=== PATIENT | female | born 1930 | race Caucasian/White ===

== ENCOUNTER 2016-12-20 03:32 | Inpatient (IN) | payer OTHER, MEDICARE ==
[2016-12-20] VITALS (16 sets, daily range): BP systolic 105–154; BP diastolic 51–65; PULSE 91–117; RESP 16–30; TEMP 97.7–100.5; O2SAT 93–99
[~2016-12-20] VITALS: Ht 160 cm; Wt 57.5 kg
[~2016-12-20 03:32] MED LIST: AMLO5 PO; ASPI81TA82 PO; CALC-137 PO; DOCU1CAP39 PO; LEVO50TA48 PO; LISI-360 PO; MAPA325T6 PO; MEMA28CA PO; REME15TA PO; TEMA15 PO; TRAM50 PO; VITA-13 PO
[2016-12-20] MEDS ORDERED: ONDANSETRON HCL 4 MG/2 ML VIAL IV PUSH ONE (04:00)
[2016-12-20] MEDS ORDERED: SODIUM CHLORIDE 0.9% FLUSH 10 ML FLUSH IVF PRN (04:00)
[2016-12-20] MEDS ORDERED: ONDANSETRON HCL 4 MG/2 ML VIAL ONE (04:01)
--- NOTE | 2016-12-20 04:04 | PD ---
HPI . Cough and shortness of breath Chief Complaint: Respiratory Symptoms Time Seen by Provider: 03:48 Travel History International Travel<30 days: No Contact w/Intl Traveler<30days: No Traveled to known affect area: No History of Present Illness HPI This patient presents to us via [facility] with the chief complaint of cough and shortness of breath. She was reportedly brought here from her son's home. Patient reports that she resides in a senior living. The patient states that she does not know anything about her past medical history. She states that the nurses at the senior living just bring her medications to take from time to time and she takes them as instructed. We presume that she had the onset of her symptoms tonight. The cough is reportedly nonproductive. She does not believe that she has been running any fever. She does not believe that she has any history of lung disease or heart disease. The patient was treated en route to the hospital with 3 DuoNeb. PFSH Past Medical History Arthritis: Yes Asthma: No Blood Disorders: No Anxiety: No Depression: No Heart Rhythm Problems: No Cancer: No Cardiovascular Problems: Yes High Cholesterol: No Chemotherapy: No Chest Pain: No Congestive Heart Failure: No COPD: No Cerebrovascular Accident: No Diabetes: No Diminished Hearing: No Endocrine: Yes GERD: No Glaucoma: No Genitourinary: No Headaches: No Hepatitis: No Hiatal Hernia: No Hypertension: Yes Immune Disorder: No Implanted Vascular Access Dvce: Yes Kidney Stones: No Musculoskeletal: Yes (bilat hip replacement) Neurologic: No Psychiatric: Yes (psychiatric) Reproductive: No Respiratory: No Migraines: No Myocardial Infarction: No Radiation Therapy: No Renal Failure: No Seizures: No Sleep Apnea: No Thyroid Disease: Yes (hypothyroidism) Ulcer: No Menopausal: Yes Past Surgical History Abdominal Surgery: No Appendectomy: No Body Medical Devices: METALS HIP Cardiac Surgery: No Cholecystectomy: No Ear Surgery: No Endocrine Surgery: No Eye Surgery: No Genitourinary Surgery: No Gynecologic Surgery: No Oral Surgery: Yes Thoracic Surgery: No Tonsillectomy: Yes Other Surgery: Yes Social History Alcohol Use: No Tobacco Use: No Substance Use: No Allergies-Medications (Allergen,Severity, Reaction): Coded Allergies: Codeine (Verified Allergy, Severe, NAUSEA/VOMITING, 03/07/15) Percocet (Verified Allergy, Severe, NAUSEA/VOMITING, 03/07/15) Morphine (Verified Allergy, Mild, 03/07/15) Reported Meds & Prescriptions Reported Meds & Active Scripts Active Review of Systems ROS Limitations: Poor Historian Except as stated in HPI: all other systems reviewed are Neg General / Constitutional: Positive: Chills, No: Fever Cardiovascular: No: Chest Pain or Discomfort Respiratory: Positive: Cough, Shortness of Breath Physical Exam Narrative GENERAL: Patient is awake and alert but a very poor historian. SKIN: Warm and dry. HEAD: Atraumatic. Normocephalic. EYES: Pupils equal and round. Extraocular movements are intact. ENT: No nasal bleeding or discharge. Mucous membranes pink and moist. NECK: Trachea midline. Neck is supple. CARDIOVASCULAR: Regular rate and rhythm. Heart sounds were normal. RESPIRATORY: Persistent dry cough. Breath sounds are diminished. By basilar rales. GASTROINTESTINAL: Abdomen soft, non-tender, nondistended. MUSCULOSKELETAL: No obvious deformities. No edema. NEUROLOGICAL: Awake and alert. No obvious cranial nerve deficits. Motor grossly within normal limits. Normal speech. PSYCHIATRIC: Unable to assess. Data Data Last Documented VS Vital Signs Date Time Temp Pulse Resp B/P Pulse Ox O2 Delivery O2 Flow Rate FiO2 12/20/16 05:02 114 30 116/59 94 Nasal Cannula 2 12/20/16 03:35 97.7 Orders Complete Blood Count With Diff (12/20/16 03:50) Comprehensive Metabolic Panel (12/20/16 03:50) B-Type Natriuretic Peptide (12/20/16 03:50) Act Partial Throm Time (Ptt) (12/20/16 03:50) Prothrombin Time / Inr (Pt) (12/20/16 03:50) Ckmb (Isoenzyme) Profile (12/20/16 03:50) Troponin I (12/20/16 03:50) Iv Access Insert/Monitor (12/20/16 03:50) Ecg Monitoring (12/20/16 03:50) Oximetry (12/20/16 03:50) Oxygen Administration (12/20/16 03:50) Chest, Single Ap (12/20/16 03:50) Sodium Chloride 0.9% Flush (Ns Flush) (12/20/16 04:00) Albuterol-Ipratropium Neb (Duoneb Neb) (12/20/16 04:00) Ondansetron Inj (Zofran Inj) (12/20/16 04:00) Ondansetron Inj (Zofran Inj) (12/20/16 04:01) Ct Thorax/ Chest Wo Iv Contras (12/20/16 04:59) Blood Culture (12/20/16 05:54) Ceftriaxone Inj (Rocephin Inj) (12/20/16 06:00) Azithromycin Inj (Zithromax Inj) (12/20/16 06:00) Admit Order (Ed Use Only) (12/20/16 06:07) Labs Laboratory Tests Test 12/20/16 12/20/16 03:53 04:14 White Blood Count 14.7 TH/MM3 Red Blood Count 3.85 MIL/MM3 Hemoglobin 11.5 GM/DL Hematocrit 35.2 % Mean Corpuscular Volume 91.5 FL Mean Corpuscular Hemoglobin 29.9 PG Mean Corpuscular Hemoglobin 32.7 % Concent Red Cell Distribution Width 13.1 % Platelet Count 190 TH/MM3 Mean Platelet Volume 7.4 FL Neutrophils (%) (Auto) 59.5 % Lymphocytes (%) (Auto) 32.9 % Monocytes (%) (Auto) 5.9 % Eosinophils (%) (Auto) 1.1 % Basophils (%) (Auto) 0.6 % Neutrophils # (Auto) 8.8 TH/MM3 Lymphocytes # (Auto) 4.9 TH/MM3 Monocytes # (Auto) 0.9 TH/MM3 Eosinophils # (Auto) 0.2 TH/MM3 Basophils # (Auto) 0.1 TH/MM3 CBC Comment DIFF FINAL Differential Comment Sodium Level 140 MEQ/L Potassium Level 3.9 MEQ/L Chloride Level 106 MEQ/L Carbon Dioxide Level 21.7 MEQ/L Anion Gap 12 MEQ/L Blood Urea Nitrogen 32 MG/DL Creatinine 1.72 MG/DL Estimat Glomerular Filtration 28 ML/MIN Rate Random Glucose 167 MG/DL Calcium Level 9.9 MG/DL Total Bilirubin 0.3 MG/DL Aspartate Amino Transf 28 U/L (AST/SGOT) Alanine Aminotransferase 23 U/L (ALT/SGPT) Alkaline Phosphatase 91 U/L Total Creatine Kinase 100 U/L Troponin I LESS THAN 0.02 NG/ML B-Type Natriuretic Peptide 14 PG/ML Total Protein 7.8 GM/DL Albumin 3.7 GM/DL Prothrombin Time 10.3 SEC Prothromb Time International 0.9 RATIO Ratio Activated Partial 21.4 SEC Thromboplast Time MDM Medical Decision Making Medical Screen Exam Complete: Yes Emergency Medical Condition: Yes Medical Record Reviewed: Yes (past medical history is significant for hypertension, hypothyroidism and dementia.) Interpretation(s) EKG shows a sinus tachycardia with a ventricular rate of 111. She does have ST segment depression in the lateral leads. This is new from her most recent EKG from February 2015. Differential Diagnosis Differential diagnosis of dyspnea includes but is not limited to congestive heart failure, pneumonia, wheezing, pneumothorax, pulmonary embolism Narrative Course This patient presents with acute cough and dyspnea. I suspect CHF. She has diminished breath sounds so she will be given 3 more nebulizer treatments. Last Impressions Chest X-Ray 12/20/16 0350 Signed Impressions: Service Date/Time: , December 20, 2016 03:47 - CONCLUSION: Stable chest x-ray. No acute cardiopulmonary abnormality is identified. Rosales Dumont MD The chest x-ray was independently viewed by me. The patient's son is now here. He states that the patient was actually transported to us from the assisted-living facility where she lives with her . The son states that they went out to dinner tonight and that he was with her until about 9 PM. He states that she is having no cough or difficulty breathing at that time. He reports no previous history of heart or lung problems. The patient has had 3 more nebulizer treatments and continues to have a very persistent dry cough. CT chest: 1. Perihilar groundglass opacity with nodularity. Although nonspecific the appearance favors an infectious or inflammatory process. 2. Coronary artery calcification. Pneumonia fits with the clinical picture. Blood cultures have been ordered as well as Rocephin and Zithromax. Physician Communication Physician Communication Dr. Castro will admit Diagnosis Primary Impression: Pneumonia Qualified Code: J18.9 - Pneumonia of both lungs due to infectious organism, unspecified part of lung Admitting Information Admitting Physician Requests: Admit Condition: Stable Enriqueta Posada MD Dec 20, 2016 04:04
[2016-12-20] MEDS: RESP: ALBUTEROL 2.5 MG/IPRATROPIUM 0.5 MG NEB (SCH) INH ×5 (04:07→23:22)
[2016-12-20 04:13] LABS: AUTOMATED NEUTROPHIL # 8.8 TH/MM3 (1.8-7.7); BASOPHIL # 0.1 TH/MM3 (0-0.2); BASOPHIL % 0.6 % (0.0-2.0); EOSINOPHIL # 0.2 TH/MM3 (0-0.4); EOSINOPHIL % 1.1 % (0.0-4.0); HEMATOCRIT 35.2 % (35.0-46.0); HEMO FLAGS DIFF FINAL; LYMPH % 32.9 % (9.0-44.0); LYMPHOCYTE # 4.9 TH/MM3 (1.0-4.8); MEAN CELL VOLUME 91.5 FL (80.0-100.0); MEAN CORPUSCULAR HEMOGLOBIN 29.9 PG (27.0-34.0); MEAN CORPUSCULAR HGB CONC 32.7 % (32.0-36.0); MONO % 5.9 % (0.0-8.0); NEUT % 59.5 % (16.0-70.0); PLATELET COUNT 190 TH/MM3 (150-450); RED BLOOD COUNT 3.85 MIL/MM3 (4.00-5.30); RED CELL DISTRIBUTION WIDTH 13.1 % (11.6-17.2); WHITE BLOOD COUNT 14.7 TH/MM3 (4.0-11.0)
--- NOTE | 2016-12-20 04:15 | RADRPT ---
EXAM DATE/TIME: 12/20/2016 03:47 [facility] COMPARISON: CHEST SINGLE AP, December 24, 2014, 13:30. INDICATIONS : Cough and shortness of breath. MEDICAL HISTORY : Hypertension. SURGICAL HISTORY : None. ENCOUNTER: Initial ACUITY: 3 days PAIN SCORE: 0/10 LOCATION: Bilateral chest FINDINGS: Portable AP view of the chest demonstrates a normal-sized cardiac silhouette with calcification of th e aorta. No effusion, consolidation, or pneumothorax is visualized. The bones and soft tissues demons trate no acute abnormality. There is stable density overlying one of the right upper ribs. CONCLUSION: Stable chest x-ray. No acute cardiopulmonary abnormality is identified. Rosales Dumont MD on December 20, 2016 at 4:13 Board Certified Radiologist. This report was verified electronically.
[2016-12-20 04:43] LABS: APTT (PATIENT) 21.4 SEC (24.3-30.1); INTERNATIONAL NORMALIZED RATIO 0.9 RATIO; PROTHROMBIN TIME - PATIENT 10.3 SEC (9.8-11.6)
[2016-12-20 04:53] LABS: ALKALINE PHOSPHATASE 91 U/L (45-117); ALT (GPT) 23 U/L (10-53); ANION GAP 12 MEQ/L (5-15); AST (GOT) 28 U/L (15-37); BICARBONATE 21.7 MEQ/L (21.0-32.0); BLOOD UREA NITROGEN 32 MG/DL (7-18); CHLORIDE 106 MEQ/L (98-107); CREATINE KINASE 100 U/L (26-192); GLOMERULAR FILTRATION RATE 28 ML/MIN (>89); POTASSIUM 3.9 MEQ/L (3.5-5.1); SODIUM (NA) 140 MEQ/L (136-145); TOTAL BILIRUBIN ADULT 0.3 MG/DL (0.2-1.0)
--- NOTE | 2016-12-20 05:46 | RADRPT ---
EXAM DATE/TIME: 12/20/2016 05:16 [facility] COMPARISON: No previous studies available for comparison. INDICATIONS : Shortness of breath and cough. RADIATION DOSE: 5.84 CTDIvol (mGy) MEDICAL HISTORY : Cardiovascular disease. Hypertension. SURGICAL HISTORY : None. ENCOUNTER: Initial ACUITY: 1 day PAIN SCALE: 0/10 LOCATION: Bilateral chest TECHNIQUE: Volumetric scanning of the chest was performed. Using automated exposure control and adjustment of t he mA and/or kV according to patient size, radiation dose was kept as low as reasonably achievable to obtain optimal diagnostic quality images. DICOM format image data is available electronically for r eview and comparison. Follow-up recommendations for incidentally detected pulmonary nodules are based at a minimum on nodul e size and patient risk factors according to Fleischner Society Guidelines. FINDINGS: LUNGS: There is cylindrical bronchiectasis in the right upper lobe posterior segment. In the perihilar lungs bilaterally there is a groundglass attenuation with nodularity. No pneumothorax. PLEURAE: There is no pleural thickening or pleural effusion. MEDIASTINUM: The heart and great vessels demonstrate no acute abnormality. There is coronary artery calcification. There is no mediastinal or hilar lymphadenopathy. AXILLAE: Within normal limits. No lymphadenopathy. MUSCULOSKELETAL: There are degenerative changes of the thoracic spine with an old healed left rib fracture. MISCELLANEOUS: The visualized upper abdominal organs demonstrate no acute abnormality. CONCLUSION: 1. Perihilar groundglass opacity with nodularity. Although nonspecific the appearance favors an infec tious or inflammatory process. 2. Coronary artery calcification. Rosales Dumont MD on December 20, 2016 at 5:41 Board Certified Radiologist. This report was verified electronically.
[2016-12-20] MEDS ORDERED: cefTRIAXone INJ 1,000 MG in SODIUM CHLORIDE 0.9% INJ 100 ML IV ONE (06:00)
[2016-12-20] MEDS ORDERED: AZITHROMYCIN INJ 500 MG in SODIUM CHLOR 0.9% 250 ML INJ 250 ML IV ONE (06:00)
[2016-12-20] MEDS ORDERED: SODIUM CHLORIDE 0.9% FLUSH 10 ML FLUSH IV FLUSH PRN ×2 (06:15→09:45)
[2016-12-20] MEDS ORDERED: NALOXONE HCL 0.4 MG/ML AMP IV PRN ×2 (06:15→09:45)
[2016-12-20] MEDS ORDERED: RESP: ALBUTEROL 2.5 MG/IPRATROPIUM 0.5 MG NEB (SCH) NEB ONE (08:15)
[2016-12-20] MEDS: SODIUM CHLORIDE 0.9% FLUSH 10 ML FLUSH IV FLUSH SCH ×3 (09:00→21:00)
--- NOTE | 2016-12-20 09:31 | HHI.HP ---
cc: Kathleen Pozo MD [facility] Service [facility] Primary Care Physician Kathleen Pozo MD Admission Diagnosis pneumonia Diagnoses: Chief Complaint: Shortness of breath Travel History International Travel<30 Days: No Contact w/Intl Traveler <30 Da: No Traveled to Known Affected Are: No History of Present Illness A 86-year-old white female with a history of dementia hypothyroidism was sent via [facility] from a local assisted living facility or movement in the [facility] due to complaints of increased shortness of breath and past 3 days worsened with physical exertion of walking with her walker. She is confused and importance historian. She thinks at this moment she is still back in the assisted living facility. She denies having associated chills or fever. She reports a nonproductive cough with her as shortness of breath. She denies any associated chest pain, nausea, vomiting, orthopnea, nor any lower extremity swelling with the symptoms. She denies any past medical history and only tells me that she's had her hip fixed in the past due to a fall. She cannot tell me what type of medication she takes. She tells me the people who take care of her at the assisted living just gives me these medications. She denied any allergies although from the assisted living facility forms is documented that she is allergic to codeine morphine and Percocet. At this time or in the process of contacting the assisted living facility to obtain a full completed medication list. She states that she does not use any oxygen at home. While she is in the emergency room, she desaturates in the 80s and placed on 3 L Review of Systems ROS Limitations: Poor Historian Constitutional: COMPLAINS OF: Fatigue Eyes: DENIES: Eye pain Ears, nose, mouth, throat: DENIES: Nasal discharge, Throat pain Respiratory: COMPLAINS OF: Cough, Shortness of breath, DENIES: Wheezing Cardiovascular: DENIES: Chest pain Gastrointestinal: DENIES: Abdominal pain, Nausea, Vomiting Musculoskeletal: DENIES: Muscle aches Neurologic: COMPLAINS OF: Poor Balance (walks with a walker.) Psychiatric: COMPLAINS OF: Anxiety Limited review of systems due to patient's confusion Past Family Social History Past Medical History Patient denies any past history are per information from this is living facility patient has a history of hypothyroidism and dementia Past Surgical History History left hip ORIF Number laminectomy Tonsillectomy Questionable bilateral total hip arthroplasty Reported Medications Unable to obtain this time currently waiting for assisted living facility to send the information of the current medication list Current faxed information from assisted-living facility Norvasc 5 mg by mouth daily Aspirin 81 mg by mouth daily Calcium carbonate 600 mg by mouth twice a day Multivitamin one by mouth daily Toca Sais 100 mg 2 tablets daily at bedtime Aricept 5 mg by mouth daily at bedtime Ferrous sulfate 325 mg once daily Laboratory oxine 50 MCG's by mouth daily Lisinopril 10 mg by mouth daily Remeron 30 mg by mouth daily at bedtime Namenda XL 28 mg by mouth daily Restoril 15 mg by mouth daily at bedtime vitamin D 3000 unit daily Allergies: Coded Allergies: Codeine (Verified Allergy, Severe, NAUSEA/VOMITING, 12/20/16) Percocet (Verified Allergy, Severe, NAUSEA/VOMITING, 12/20/16) Morphine (Verified Allergy, Mild, 12/20/16) Family History She denies Social History She is a local resident at [facility] in [facility] Does not smoke, does not drink alcohol Physical Exam Vital Signs Vital Signs Date Time Temp Pulse Resp B/P Pulse Ox O2 Delivery O2 Flow Rate FiO2 12/20/16 08:39 95 Nasal Cannula 2.00 12/20/16 07:13 95 16 105/51 96 Nasal Cannula 2 12/20/16 06:11 98.5 102 28 119/57 96 Nasal Cannula 2 12/20/16 05:02 114 30 116/59 94 Nasal Cannula 2 12/20/16 04:48 116 28 126/58 94 Nasal Cannula 2 12/20/16 04:29 30 95 Nasal Cannula 2 12/20/16 03:54 93 Nasal Cannula 2 12/20/16 03:50 108 30 154/65 93 Nasal Cannula 2 12/20/16 03:35 97.7 117 24 129/62 94 Physical Exam GENERAL: This is a well-nourished, well-developed patient, in mild respiratory distress with nonproductive cough SKIN: No rashes, ecchymoses or lesions. Cool and dry. HEAD: Atraumatic. Normocephalic. No temporal or scalp tenderness. EYES: Pupils equal round and reactive. Extraocular motions intact. No scleral icterus. No injection or drainage. ENT: Nose without bleeding, purulent drainage or septal hematoma. Throat without erythema, tonsillar hypertrophy or exudate. Uvula midline. Airway patent. NECK: Trachea midline. No JVD or lymphadenopathy. Supple, nontender, no meningeal signs. CARDIOVASCULAR: Tachycardic irregular rhythm RESPIRATORY: Bilateral rhonchi bases with no active retractions, slightly diminished breath sounds GASTROINTESTINAL: Abdomen soft, non-tender, nondistended. No hepato-splenomegaly , or palpable masses. No guarding. Normoactive bowel sounds MUSCULOSKELETAL: Extremities without clubbing, cyanosis, or edema. No joint tenderness, effusion, or edema noted. No calf tenderness. Negative Homans sign bilaterally. NEUROLOGICAL: Awake and alert to person only but not to place time nor situation. She [facility] She does not know the year. Cranial nerves II through XII intact. Motor and sensory grossly overall within normal limits. Five out of 5 muscle strength in all muscle groups. Normal speech. Laboratory Laboratory Tests Test 12/20/16 12/20/16 03:53 04:14 White Blood Count 14.7 Red Blood Count 3.85 Hemoglobin 11.5 Hematocrit 35.2 Mean Corpuscular Volume 91.5 Mean Corpuscular Hemoglobin 29.9 Mean Corpuscular Hemoglobin 32.7 Concent Red Cell Distribution Width 13.1 Platelet Count 190 Mean Platelet Volume 7.4 Neutrophils (%) (Auto) 59.5 Lymphocytes (%) (Auto) 32.9 Monocytes (%) (Auto) 5.9 Eosinophils (%) (Auto) 1.1 Basophils (%) (Auto) 0.6 Neutrophils # (Auto) 8.8 Lymphocytes # (Auto) 4.9 Monocytes # (Auto) 0.9 Eosinophils # (Auto) 0.2 Basophils # (Auto) 0.1 CBC Comment DIFF FINAL Differential Comment Sodium Level 140 Potassium Level 3.9 Chloride Level 106 Carbon Dioxide Level 21.7 Anion Gap 12 Blood Urea Nitrogen 32 Creatinine 1.72 Estimat Glomerular Filtration 28 Rate Random Glucose 167 Calcium Level 9.9 Total Bilirubin 0.3 Aspartate Amino Transf 28 (AST/SGOT) Alanine Aminotransferase 23 (ALT/SGPT) Alkaline Phosphatase 91 Total Creatine Kinase 100 Troponin I LESS THAN 0.02 B-Type Natriuretic Peptide 14 Total Protein 7.8 Albumin 3.7 Prothrombin Time 10.3 Prothromb Time International 0.9 Ratio Activated Partial 21.4 Thromboplast Time Date/Time Procedure Status Source Growth 12/20/16 06:05 Aerobic Blood Culture Received Blood Peripheral Pending 12/20/16 06:05 Anaerobic Blood Culture Received Blood Peripheral Pending Result Diagram: 12/20/1635212/20/16352 Imaging EKG shows sinus tachycardia with heart rate [address] 12/20/16 0459 Signed Impressions: Service Date/Time: , December 20, 2016 05:16 - CONCLUSION: 1. Perihilar groundglass opacity with nodularity. Although nonspecific the appearance favors an infectious or inflammatory process. 2. Coronary artery calcification. Rosales Dumont MD Chest X-Ray 12/20/16 035 Signed Impressions: Service Date/Time: , December 20, 2016 03:47 - CONCLUSION: Stable chest x-ray. No acute cardiopulmonary abnormality is identified. Rosales Dumont MD Septic Shock Reassessment Heart: Other (tachycardia regular rhythm) Lungs: Course (with rhonchi) Skin: Warm, [facility] Peripheral Pulses: Bounding Right Radial Bounding Left Radial Bounding Right Popliteal Bounding Left Popliteal Bounding Right Dorsalis Pedis Bounding Left Dorsalis Pedis Bounding Right Posterior Tibial Bounding Left Posterior Tibial Capillary Refill: Brisk, <2 seconds Assessment and Plan Problem List: (1) Acute respiratory failure ICD Code: J96.00 Status: Acute (2) Community acquired pneumonia ICD Code: J18.9 Status: Acute (3) Alzheimer's dementia ICD Code: F02.80 Status: Chronic Assessment and Plan 86-year-old white female presents with acute respiratory failure with associated hypoxia likely from underlying community acquired pneumonia. At this time will obtain a stat lactic acid and follow with blood cultures to rule out sepsis. Patient presented with tachycardia, leukocytosis and acute respiratory symptoms along with changes in chest x-ray and clinical findings. IV Rocephin and Zithromax has been given. Continue with oxygen support. Continue with bronchodilator DuoNeb and supportive care. Continue physical therapy consult History hypothyroidismwill restart Synthroid when home medication list obtained. History of chronic dementiapatient's baseline is likely confusion Hypertension, chronicthe lisinopril due to septic shock and acute kidney injury Acute kidney injury superimposed on chronic kidney disease stage IIImay be due to sepsis, it hydration monitor closely. DVT prophylaxisLovenox Additional information, lactic acid return back over 6. At this time this meets CMS definition for septic shockshe is currently hemodynamically stable and IV fluid bolus will be given a continue monitor closely with a repeat lactic acid, supportive care. Physician Certification 2 Midnight Certification Type: Admission for Inpatient Services Order for Inpatient Services The services are ordered in accordance with Medicare regulations or non- Medicare payer requirements, as applicable. In the case of services not specified as inpatient-only, they are appropriately provided as inpatient services in accordance with the 2-midnight benchmark. Estimated LOS (days): 4 days is the estimated time the patient will need to remain in the hospital, assuming treatment plan goals are met and no additional complications. Post-Hospital Plan: [facility] Astrid Vera MD Dec 20, 2016 09:31
[2016-12-20] MEDS ORDERED: CHOL100025 CHEW (09:41)
[2016-12-20] MEDS ORDERED: MEMA28CA PO (09:41)
[2016-12-20] MEDS ORDERED: ASPI81CH CHEW (09:41)
[2016-12-20] MEDS ORDERED: CALC500C16 CHEW (09:41)
[2016-12-20] MEDS ORDERED: LISI10TA3 PO (09:41)
[2016-12-20] MEDS ORDERED: LEVO50TA4 PO (09:41)
[2016-12-20] MEDS ORDERED: DAILTAB39 (09:41)
[2016-12-20] MEDS ORDERED: DOCU100C PO (09:41)
[2016-12-20] MEDS ORDERED: ARIC5TAB2 PO (09:41)
[2016-12-20] MEDS ORDERED: AMLO5TAB2 PO (09:41)
[2016-12-20] MEDS ORDERED: MIRT30TA PO (09:41)
[2016-12-20] MEDS ORDERED: TEMA15CA PO (09:41)
[2016-12-20] MEDS ORDERED: FERR325T8 PO (09:41)
[2016-12-20] MEDS ORDERED: SODIUM CHLOR 0.9% 1000 ML INJ 800 ML IV ONE (09:43)
[2016-12-20] MEDS ORDERED: SODIUM CHLOR 0.9% 1000 ML INJ 1,000 ML IV ONE (09:43)
[2016-12-20] MEDS ORDERED: SENNOSIDES 8.6 MG TAB PO PRN (09:45)
[2016-12-20] MEDS ORDERED: BISACODYL 10 MG SUPP RECTAL PRN (09:45)
[2016-12-20] MEDS ORDERED: LACTULOSE SYRUP 20 GM/30 ML CUP PO PRN (09:45)
[2016-12-20] MEDS ORDERED: ACETAMINOPHEN 325 MG TAB PO PRN (09:45)
[2016-12-20] MEDS ORDERED: ONDANSETRON HCL 4 MG/2 ML VIAL IVP PRN (09:45)
[2016-12-20] MEDS ORDERED: MAGNESIUM HYDROXIDE SUSP 30 ML CUP PO PRN (09:45)
[2016-12-20] MEDS ORDERED: TOBRAMYCIN INJ 400 MG in SODIUM CHLORIDE 0.9% INJ 100 ML IV STA (09:49)
[2016-12-20] MEDS: methylPREDNISolone SOD SUCC 40 MG/1 ML VIAL IV SCH ×2 (10:00→21:32)
[2016-12-20] MEDS ORDERED: Vancomycin Consult Pharmacy 1 EA OTHER SCH (10:00)
[2016-12-20] MEDS: ENOXAPARIN SODIUM 40 MG/0.4 ML SYRINGE SQ SCH (10:01)
[2016-12-20 11:14] LABS: LACTIC ACID GHOST NOT REPORTABLE
[2016-12-20] MEDS ORDERED: VANCOMYCIN INJ 1,000 MG in SODIUM CHLOR 0.9% 250 ML INJ 250 ML IV ONE (11:15)
[2016-12-20] MEDS: CEFEPIME INJ 1,000 MG in SODIUM CHLORIDE 0.9% INJ 100 ML IV SCH (12:15)
--- NOTE | 2016-12-20 12:45 | EKG ---
Date Performed: 12/20/2016 Time Performed: 03:44:51 PTAGE: 86 years EKG: SINUS TACHYCARDIA INDETERMINATE AXIS POSSIBLE RIGHT VENTRICULAR CONDUCTION DELAY MODERATE S T DEPRESSION ABNORMAL ECG NO PREVIOUS TRACING DOCTOR: Noé Jackson Interpretating Date/Time 12/20/2016 12:42:42
--- NOTE | 2016-12-20 14:43 | RADRPT ---
EXAM DATE/TIME: 12/20/2016 13:52 [facility] COMPARISON: CHEST SINGLE AP, December 20, 2016, 3:47. INDICATIONS : Cough, congestion, chest pain MEDICAL HISTORY : Hypertension. SURGICAL HISTORY : None. ENCOUNTER: Initial ACUITY: 2 days PAIN SCORE: 2/10 LOCATION: Bilateral chest FINDINGS: Patchy bilateral lower lobe airspace disease. Mild diffuse interstitial prominence. Cardiomediastinal contours are stable. Central pulmonary vascularity is slightly indistinct. Remainder of exam is unch anged. CONCLUSION: 1. Interstitial prominence and indistinct central pulmonary vascularity consistent with positive flui d balance. 2. Patchy bilateral lower lobe airspace disease likely reflects atelectasis given the rapid interval development although aspiration cannot be excluded in the appropriate clinical setting. Ramin Mccabe MD on December 20, 2016 at 14:33 Board Certified Radiologist. This report was verified electronically.
[2016-12-20 17:11] LABS: LACTIC ACID GHOST NOT REPORTABLE
[2016-12-20] MEDS ORDERED: LORazepam 2 MG/ML VIAL IV PUSH ONE (19:00)
[2016-12-20 19:07] LABS: BACTERIA, URINE FEW /hpf; BLOOD, URINE SMALL (NEG); COMMENT (UR) CATH-CULTURE IND; CULTURE IF INDICATED CATH CULTURE IND; GLUCOSE,URINE NEG (NEG); HYALINE CAST, URINE 2 /lpf (RARE); KETONE, URINE NEG (NEG); MUCUS URINE FEW /lpf (OCC); NITRITE,URINE POS (NEG); PH, URINE 5.5 (5.0-8.5); URINE COLOR LIGHT-YELLOW (YELLW/STRAW)
[2016-12-20] MEDS: DOCUSATE SODIUM 50 MG/SENNA 8.6 MG TAB PO SCH (21:00)
[2016-12-20] MEDS: DONEPEZIL HCL 5 MG TAB PO SCH (21:31)
[2016-12-20] MEDS: MEMANTINE HCL 10 MG TAB PO SCH (21:31)
[2016-12-20] MEDS: DOCUSATE SODIUM 100 MG CAP PO SCH (21:31)
[2016-12-20] MEDS: guaiFENesin/DEXTROMETHORPHAN 200 MG/20 MG/10 ML CUP PO PRN (23:00)
[2016-12-21] VITALS (14 sets, daily range): BP systolic 119–157; BP diastolic 55–68; PULSE 74–95; RESP 16–24; TEMP 97.9–99.5; O2SAT 95–100
[2016-12-21] MEDS: RESP: ALBUTEROL 2.5 MG/IPRATROPIUM 0.5 MG NEB (SCH) INH ×6 (02:58→23:51)
[2016-12-21] MEDS: guaiFENesin/DEXTROMETHORPHAN 200 MG/20 MG/10 ML CUP PO PRN ×2 (04:10→09:24)
[2016-12-21] MEDS: AZITHROMYCIN INJ 500 MG in SODIUM CHLOR 0.9% 250 ML INJ 250 ML IV SCH (05:21)
[2016-12-21 05:33] LABS: AUTOMATED NEUTROPHIL # 12.3 TH/MM3 (1.8-7.7); BASOPHIL % 0.3 % (0.0-2.0); HEMATOCRIT 29.2 % (35.0-46.0); LYMPH % 8.9 % (9.0-44.0); LYMPHOCYTE # 1.3 TH/MM3 (1.0-4.8); MEAN CELL VOLUME 91.7 FL (80.0-100.0); MEAN CORPUSCULAR HEMOGLOBIN 29.9 PG (27.0-34.0); MEAN CORPUSCULAR HGB CONC 32.7 % (32.0-36.0); MONO % 6.6 % (0.0-8.0); NEUT % 84.2 % (16.0-70.0); PLATELET COUNT 149 TH/MM3 (150-450); RED BLOOD COUNT 3.18 MIL/MM3 (4.00-5.30); RED CELL DISTRIBUTION WIDTH 13.1 % (11.6-17.2); WHITE BLOOD COUNT 14.6 TH/MM3 (4.0-11.0)
[2016-12-21 05:42] LABS: HEMO FLAGS AUTO DIFF
[2016-12-21] MEDS ORDERED: cefTRIAXone INJ 1,000 MG in SODIUM CHLORIDE 0.9% INJ 100 ML IV SCH (06:00)
[2016-12-21 06:41] LABS: BICARBONATE 21.5 MEQ/L (21.0-32.0); POTASSIUM 4.4 MEQ/L (3.5-5.1)
[2016-12-21 07:05] LABS: BANDS 36 % (0-6); NEUTROPHIL # MANUAL DIFF 12.8 TH/MM3 (1.8-7.7); PLATELET ESTIMATE SMEAR NORMAL (NORMAL); PLATELET MORPHOLOGY NORMAL (NORMAL); POLYS (SEG NEUTROPHILS) 52 % (16-70); SCAN/DIFF FINAL DIFF MANUAL; WBC DIFF SAMPLE 100
[2016-12-21] MEDS: LEVOTHYROXINE SODIUM 50 MCG TAB PO SCH (07:15)
[2016-12-21] MEDS: DOCUSATE SODIUM 50 MG/SENNA 8.6 MG TAB PO SCH ×2 (09:00→20:02)
[2016-12-21] MEDS: FERROUS SULFATE 325 MG (65 MG ELEMENTAL IRON) TAB PO SCH (09:24)
[2016-12-21] MEDS: methylPREDNISolone SOD SUCC 40 MG/1 ML VIAL IV SCH ×2 (09:24→21:19)
[2016-12-21] MEDS: MEMANTINE HCL 10 MG TAB PO SCH ×2 (09:24→20:01)
[2016-12-21] MEDS: SODIUM CHLORIDE 0.9% FLUSH 10 ML FLUSH IV FLUSH SCH ×4 (09:24→20:02)
[2016-12-21] MEDS: ASPIRIN 81 MG CHEW TAB CHEW SCH (09:24)
[2016-12-21] MEDS: ENOXAPARIN SODIUM 40 MG/0.4 ML SYRINGE SQ SCH (09:24)
--- NOTE | 2016-12-21 10:02 | HHI.PR ---
Subjective Remarks Feeling better however still has that consistent cough. No shortness of breath. No fevers or chills Objective Vitals Vital Signs Date Time Temp Pulse Resp B/P Pulse Ox O2 Delivery O2 Flow Rate FiO2 12/21/16 07:39 100 Nasal Cannula 2.00 12/21/16 06:00 79 12/21/16 04:00 98.4 90 24 152/67 99 12/21/16 04:00 90 12/21/16 02:00 76 12/21/16 00:00 98.1 81 21 134/55 98 12/21/16 00:00 81 12/20/16 22:00 91 12/20/16 20:00 93 12/20/16 20:00 100.5 93 23 137/63 98 12/20/16 19:31 99 Nasal Cannula 2.00 12/20/16 19:00 98 Nasal Cannula 4.00 12/20/16 18:00 95 12/20/16 17:00 98.6 98 21 121/59 99 12/20/16 15:08 100.0 96 22 105/60 98 Nasal Cannula 4 12/20/16 14:02 115 24 118/57 96 Nasal Cannula 4 12/20/16 12:22 26 96 Nasal Cannula 4 12/20/16 11:24 105 24 117/56 96 Nasal Cannula 4 I/O 12/20/16 12/20/16 12/20/16 12/21/16 12/21/16 12/21/16 07:00 15:00 23:00 07:00 15:00 23:00 Intake Total 100 ml 250 ml Output Total 1325 ml 525 ml Balance -1225 ml -275 ml Intake Oral 100 ml 0 ml IV Total 0 ml 250 ml Output Urine Total 1325 ml 525 ml # Voids 0 # Bowel Movements 0 0 Result Diagram: 12/21/16 0455 12/21/16 0455 Other Results Microbiology Date/Time Procedure Status Source Growth 12/20/16 13:15 Urine Culture Received Urine Catheterized Urine Pending 12/20/16 06:05 Aerobic Blood Culture Received Blood Peripheral Pending 12/20/16 06:05 Anaerobic Blood Culture Received Blood Peripheral Pending Objective Remarks GENERAL: This is a well-nourished, well-developed patient, in no apparent distress. CARDIOVASCULAR: Regular rate and rhythm RESPIRATORY: Bilateral lower rhonchi with few crackles GASTROINTESTINAL: Abdomen soft, non-tender, nondistended. Normal active bowel sounds MUSCULOSKELETAL: Extremities without clubbing, cyanosis, or edema. NEURO: Alert & Oriented x2 to person, place Moves all ext x4 A/P Problem List: (1) Septic shock ICD Code: A41.9 Status: Acute (2) Acute respiratory failure ICD Code: J96.00 Status: Acute (3) Community acquired pneumonia ICD Code: J18.9 Status: Acute (4) Alzheimer's dementia ICD Code: F02.80 Status: Chronic Assessment and Plan 86-year-old white female presents with acute respiratory failure with associated hypoxia likely from underlying community acquired pneumonia. Septic shock from likely entering community-acquired pneumonia however will need to also rule out prehospital urinary tract infection.Continue with IV cefepime , Zithromax, vancomycin; a dose of tobramycin was given emergency room. Oxygen support was able to be weaned to 3 L per continue with bronchodilator DuoNeb and supportive care. Continue physical therapy. Lactic acid trending down. Patient continues to be hemodynamically stable. Continue with IV fluids and supportive care. Add Tessalon Perles for cough, continue with Robitussin-DM. History of hypothyroidismSynthroid History of chronic dementiaresume Aricept Hypertension, essential chroniccontinue hold lisinopril antihypertensives due to recent septic shock and acute kidney injury Acute kidney injury superimposed on chronic kidney disease stage III due to sepsisimproved with IV hydration DVT prophylaxisLovenox DO NOT RESUSCITATE status per son's wishes, patient does have a living will and advanced directive Discharge Planning Will likely need SNF placement. Astrid Vera MD Dec 21, 2016 10:02
[2016-12-21] MEDS ORDERED: Vancomycin Consult Pharmacy 1 EA OTHER SCH (10:15)
[2016-12-21] MEDS ORDERED: VANCOMYCIN INJ 1,000 MG in SODIUM CHLOR 0.9% 250 ML INJ 250 ML IV SCH (11:00)
[2016-12-21] MEDS ORDERED: VANCOMYCIN 1,000 MG/NS 250 ML IV ONE ×2 (11:00)
[2016-12-21] MEDS: CEFEPIME INJ 1,000 MG in SODIUM CHLORIDE 0.9% INJ 100 ML IV SCH (11:57)
[2016-12-21] MEDS: DONEPEZIL HCL 5 MG TAB PO SCH (20:02)
[2016-12-21] MEDS: DOCUSATE SODIUM 100 MG CAP PO SCH (20:02)
[2016-12-21] MEDS: BENZONATATE 100 MG CAP PO PRN (20:02)
[2016-12-22] VITALS (10 sets, daily range): BP systolic 140–168; BP diastolic 70–81; PULSE 90–117; RESP 17–20; TEMP 97.4–99.4; O2SAT 93–96
[2016-12-22] MEDS: TEMAZEPAM 7.5 MG CAP PO PRN ×2 (00:04→21:37)
[2016-12-22] MEDS: guaiFENesin/DEXTROMETHORPHAN 200 MG/20 MG/10 ML CUP PO PRN ×2 (00:04→04:56)
[2016-12-22] MEDS: RESP: ALBUTEROL 2.5 MG/IPRATROPIUM 0.5 MG NEB (SCH) INH ×6 (01:10→21:51)
[2016-12-22] MEDS: ACETAMINOPHEN 325 MG TAB PO PRN ×2 (03:16→14:21)
[2016-12-22] MEDS: BENZONATATE 100 MG CAP PO PRN ×2 (03:16→14:27)
[2016-12-22] MEDS ORDERED: diphenhydrAMINE HCL 25 MG CAP PO ONE (04:45)
[2016-12-22] MEDS: AZITHROMYCIN INJ 500 MG in SODIUM CHLOR 0.9% 250 ML INJ 250 ML IV SCH (04:56)
[2016-12-22] MEDS: LEVOTHYROXINE SODIUM 50 MCG TAB PO SCH (04:56)
[2016-12-22] MEDS: SODIUM CHLORIDE 0.9% FLUSH 10 ML FLUSH IV FLUSH SCH ×4 (09:00→21:38)
[2016-12-22] MEDS: FERROUS SULFATE 325 MG (65 MG ELEMENTAL IRON) TAB PO SCH (09:13)
[2016-12-22] MEDS: MEMANTINE HCL 10 MG TAB PO SCH ×2 (09:13→21:39)
[2016-12-22] MEDS: ASPIRIN 81 MG CHEW TAB CHEW SCH (09:13)
[2016-12-22] MEDS: DOCUSATE SODIUM 50 MG/SENNA 8.6 MG TAB PO SCH ×2 (09:13→21:37)
[2016-12-22] MEDS: ENOXAPARIN SODIUM 30 MG/0.3 ML SYRINGE SQ SCH (09:17)
[2016-12-22] MEDS: methylPREDNISolone SOD SUCC 40 MG/1 ML VIAL IV SCH ×2 (09:17→21:37)
[2016-12-22 12:04] LABS: AUTOMATED NEUTROPHIL # 16.5 TH/MM3 (1.8-7.7); BASOPHIL % 0.1 % (0.0-2.0); HEMATOCRIT 27.8 % (35.0-46.0); HEMO FLAGS DIFF FINAL; LYMPH % 4.6 % (9.0-44.0); LYMPHOCYTE # 0.8 TH/MM3 (1.0-4.8); MEAN CELL VOLUME 89.1 FL (80.0-100.0); MEAN CORPUSCULAR HEMOGLOBIN 30.3 PG (27.0-34.0); MONO % 4.6 % (0.0-8.0); NEUT % 90.7 % (16.0-70.0); PLATELET COUNT 157 TH/MM3 (150-450); RED BLOOD COUNT 3.12 MIL/MM3 (4.00-5.30); RED CELL DISTRIBUTION WIDTH 13.2 % (11.6-17.2); WHITE BLOOD COUNT 18.2 TH/MM3 (4.0-11.0)
[2016-12-22 12:24] LABS: ALT (GPT) 39 U/L (10-53); ANION GAP 10 MEQ/L (5-15); AST (GOT) 66 U/L (15-37); BICARBONATE 21.9 MEQ/L (21.0-32.0); BLOOD UREA NITROGEN 29 MG/DL (7-18); CHLORIDE 112 MEQ/L (98-107); GLOMERULAR FILTRATION RATE 35 ML/MIN (>89); POTASSIUM 3.8 MEQ/L (3.5-5.1); SODIUM (NA) 144 MEQ/L (136-145)
[2016-12-22 12:25] LABS: ALKALINE PHOSPHATASE 68 U/L (45-117); TOTAL BILIRUBIN ADULT 0.4 MG/DL (0.2-1.0)
[2016-12-22] MEDS: CEFEPIME INJ 1,000 MG in SODIUM CHLORIDE 0.9% INJ 100 ML IV SCH (12:37)
[2016-12-22] MEDS ORDERED: VANCOMYCIN 1,000 MG/NS 250 ML IV ONE ×2 (13:00)
[2016-12-22] MEDS ORDERED: THIAMINE HCL 100 MG TAB PO ONE (16:30)
[2016-12-22] MEDS ORDERED: DOCUSATE SODIUM 50 MG/SENNA 8.6 MG TAB PO ONE (16:30)
[2016-12-22] MEDS ORDERED: MAGNESIUM HYDROXIDE SUSP 30 ML CUP PO ONE (16:30)
--- NOTE | 2016-12-22 16:33 | HHI.PR ---
Subjective Remarks Patient seen this morning around 11 AM. She says that shortness of breath slightly improved. Denies any chest pain. She reports Leo irritation. Requests that Leo be removed. Objective Vital Signs Date Time Temp Pulse Resp B/P Pulse Ox O2 Delivery O2 Flow Rate FiO2 12/22/16 12:00 98.3 103 20 157/79 94 12/22/16 08:00 104 12/22/16 08:00 95 Nasal Cannula 2.00 12/22/16 08:00 97.8 117 20 142/70 94 12/22/16 04:00 97.9 101 17 162/78 95 12/22/16 03:55 93 Nasal Cannula 2.00 12/22/16 01:13 95 Nasal Cannula 2.00 12/22/16 00:00 99.0 90 20 168/81 94 12/21/16 20:30 92 12/21/16 20:00 98.0 80 16 157/68 95 I/O 12/21/16 12/21/16 12/21/16 12/22/16 12/22/16 12/22/16 06:59 14:59 22:59 06:59 14:59 22:59 Intake Total 250 ml 990 ml 480 ml 860 ml Output Total 525 ml 350 ml 850 ml 550 ml Balance -275 ml 640 ml -370 ml 310 ml Intake Oral 0 ml 420 ml 480 ml 360 ml IV Total 250 ml 570 ml 500 ml Output Urine Total 525 ml 350 ml 850 ml 550 ml Stool Total 0 ml # Bowel Movements 0 Result Diagram: 12/22/16 1138 12/22/16 1138 Objective Remarks GENERAL: Patient sitting up in bed. Appears comfortable. SKIN: Warm and dry. HEAD: Normocephalic. EYES: No scleral icterus. No injection or drainage. NECK: Supple, trachea midline. No JVD. CARDIOVASCULAR: Regular rate and rhythm without murmurs, gallops, or rubs. RESPIRATORY: Breath sounds equal bilaterally. Variable rhonchi bilaterally, changes with coughing. GASTROINTESTINAL: Abdomen soft, non-tender, nondistended. MUSCULOSKELETAL: No cyanosis, or edema. BACK: Nontender without obvious deformity. No CVA tenderness. A/P Assessment and Plan === 12/22/16========= //Leukocytosis worsened. Possibly secondary to steroids. Monitor. Leo irritation. Removed.senna// //Constipation. Laxatives ordered 86-year-old white female presents with acute respiratory failure with associated hypoxia likely from underlying community acquired pneumonia. //Septic shock //Suspected community-acquired pneumonia -UA 12/20 with white blood cells of 70, however urinalysis negative -Continue broad-spectrum antibiotics, o2, nebs, and cough medication. Repeat lactic acid //History of hypothyroidismcont Synthroid //History of chronic dementiacont Aricept //Hypertension, essential chroniccontinue to hold lisinopril antihypertensives due to recent septic shock and acute kidney injury //Acute kidney injury superimposed on chronic kidney disease stage III due to sepsisimproved with IV hydration -12/22 cr 1.4 stable //DVT prophylaxisLovenox DO NOT RESUSCITATE status per son's wishes, patient does have a living will and advanced directive Mahesh Wood MD Dec 22, 2016 16:32
[2016-12-22] MEDS: DONEPEZIL HCL 5 MG TAB PO SCH (21:37)
[2016-12-22] MEDS: DOCUSATE SODIUM 100 MG CAP PO SCH (21:37)
[2016-12-23] VITALS (10 sets, daily range): BP systolic 128–161; BP diastolic 63–88; PULSE 83–99; RESP 18; TEMP 97.6–98.2; O2SAT 91–96
[2016-12-23] MEDS: RESP: ALBUTEROL 2.5 MG/IPRATROPIUM 0.5 MG NEB (SCH) INH ×6 (04:00→20:04)
[2016-12-23] MEDS: AZITHROMYCIN INJ 500 MG in SODIUM CHLOR 0.9% 250 ML INJ 250 ML IV SCH (05:28)
[2016-12-23] MEDS: LEVOTHYROXINE SODIUM 50 MCG TAB PO SCH (05:28)
[2016-12-23] MEDS: RESP: ALBUTEROL 2.5 MG/3 ML NEB (PRN) INH (05:48)
[2016-12-23 08:03] LABS: AUTOMATED NEUTROPHIL # 13.7 TH/MM3 (1.8-7.7); BASOPHIL % 0.2 % (0.0-2.0); EOSINOPHIL % 0.1 % (0.0-4.0); HEMATOCRIT 27.8 % (35.0-46.0); LYMPH % 7.5 % (9.0-44.0); LYMPHOCYTE # 1.2 TH/MM3 (1.0-4.8); MEAN CELL VOLUME 89.2 FL (80.0-100.0); MEAN CORPUSCULAR HEMOGLOBIN 29.9 PG (27.0-34.0); MEAN CORPUSCULAR HGB CONC 33.5 % (32.0-36.0); MONO % 5.1 % (0.0-8.0); NEUT % 87.1 % (16.0-70.0); PLATELET COUNT 154 TH/MM3 (150-450); RED BLOOD COUNT 3.12 MIL/MM3 (4.00-5.30); RED CELL DISTRIBUTION WIDTH 12.7 % (11.6-17.2); WHITE BLOOD COUNT 15.7 TH/MM3 (4.0-11.0)
[2016-12-23 08:05] LABS: HEMO FLAGS AUTO DIFF
[2016-12-23 08:17] LABS: BICARBONATE 19.7 MEQ/L (21.0-32.0); MAGNESIUM 2.5 MG/DL (1.5-2.5); POTASSIUM 4.2 MEQ/L (3.5-5.1)
[2016-12-23 08:22] LABS: INDIRECT BILIRUBIN 0.4 MG/DL (0.0-0.8); TOTAL BILIRUBIN ADULT 0.5 MG/DL (0.2-1.0)
[2016-12-23 08:47] LABS: PLATELET ESTIMATE SMEAR NORMAL (NORMAL); PLATELET MORPHOLOGY NORMAL (NORMAL); SCAN/DIFF AUTO DIFF CONFIRMED
[2016-12-23] MEDS: SODIUM CHLORIDE 0.9% FLUSH 10 ML FLUSH IV FLUSH SCH ×4 (09:00→21:00)
[2016-12-23] MEDS: DOCUSATE SODIUM 50 MG/SENNA 8.6 MG TAB PO SCH ×2 (09:46→21:25)
[2016-12-23] MEDS: FERROUS SULFATE 325 MG (65 MG ELEMENTAL IRON) TAB PO SCH (09:46)
[2016-12-23] MEDS: ASPIRIN 81 MG CHEW TAB CHEW SCH (09:47)
[2016-12-23] MEDS: MEMANTINE HCL 10 MG TAB PO SCH ×2 (09:47→21:25)
[2016-12-23] MEDS: methylPREDNISolone SOD SUCC 40 MG/1 ML VIAL IV SCH ×2 (09:47→21:25)
[2016-12-23] MEDS: ENOXAPARIN SODIUM 30 MG/0.3 ML SYRINGE SQ SCH (09:50)
[2016-12-23] MEDS: BENZONATATE 100 MG CAP PO PRN (09:51)
[2016-12-23] MEDS ORDERED: PHARMACY ORDERED LAB ONE (11:45)
[2016-12-23] MEDS: VANCOMYCIN 1,000 MG/NS 250 ML IV SCH ×2 (12:02)
[2016-12-23] MEDS ORDERED: HYDROmorphone HCL PF 1 MG/ML VIAL IV PUSH ONE (13:15)
--- NOTE | 2016-12-23 13:16 | HHI.PR ---
Subjective Remarks No acute events overnight. Afebrile, vital signs stable. Patient endorses chest pain/pressure worse underneath her left breast. Complains of consistent painful cough. Endorses shortness of breath. States she just "does not feel well." Objective Vitals Vital Signs Date Time Temp Pulse Resp B/P Pulse Ox O2 Delivery O2 Flow Rate FiO2 12/23/16 11:15 Room Air 12/23/16 08:17 93 Nasal Cannula 2.00 12/23/16 08:03 97.6 87 18 128/63 95 12/23/16 07:15 Nasal Cannula 2.00 12/23/16 04:00 98.1 99 18 161/88 96 12/23/16 00:00 98.1 85 18 131/64 94 12/22/16 21:54 96 Nasal Cannula 2.00 12/22/16 20:10 104 12/22/16 20:00 99.4 97 18 140/72 94 12/22/16 19:31 Nasal Cannula 2.00 12/22/16 16:00 97.4 96 20 157/73 95 I/O 12/22/16 12/22/16 12/22/16 12/23/16 12/23/16 12/23/16 06:59 14:59 22:59 06:59 14:59 22:59 Intake Total 860 ml 406 ml 240 ml 240 ml Output Total 550 ml 1100 ml 0 ml Balance 310 ml -694 ml 240 ml 240 ml Intake Oral 360 ml 120 ml 240 ml 240 ml IV Total 500 ml 286 ml Output Urine Total 550 ml 1100 ml 0 ml # Voids 2 # Bowel Movements 1 2 Result Diagram: 12/23/16 0600 12/23/16 0600 Objective Remarks GENERAL: Mild distress. SKIN: Warm and dry. HEAD: Normocephalic. EYES: No scleral icterus. No injection or drainage. NECK: Supple, trachea midline. No JVD. CARDIOVASCULAR: Regular rate and rhythm without murmurs, gallops, or rubs. RESPIRATORY: Bilateral rhonchi. GASTROINTESTINAL: Abdomen soft, non-tender, nondistended. MUSCULOSKELETAL: No cyanosis, or edema. No calf tenderness. Negative Homans sign. BACK: Nontender without obvious deformity. No CVA tenderness. A/P Problem List: (1) Septic shock ICD Code: A41.9 Status: Acute (2) Acute respiratory failure ICD Code: J96.00 Status: Acute (3) Community acquired pneumonia ICD Code: J18.9 Status: Acute (4) Alzheimer's dementia ICD Code: F02.80 Status: Chronic Assessment and Plan 86-year-old white female presents with acute respiratory failure with associated hypoxia likely from underlying community acquired pneumonia. //New-onset shortness of breath/chest pain Chest x-ray, d-dimer, ABG, troponin, EKG pending May be secondary to persistent cough and pneumonia however cannot rule out ACS or PE at this time //Septic shock Resolving Secondary to CAP //Suspected community-acquired pneumonia Continue antibiotic therapy //History of hypothyroidismcont Synthroid //History of chronic dementiacont Aricept //Hypertension, essential chroniccontinue to hold lisinopril due to recent septic shock and acute kidney injury. BP controlled at this time. //Acute kidney injury superimposed on chronic kidney disease stage III due to sepsisimproved with IV hydration -Creatinine stable //DVT prophylaxisLovenox DO NOT RESUSCITATE status per son's wishes, patient does have a living will and advanced directive Vinita Wan MD R3 Dec 23, 2016 13:15
[2016-12-23 13:58] LABS: BLOOD GAS BASE EXCESS -1.3 mmol/L (-2-2); BLOOD GAS CARBOXYHEMOGLOBIN 1.3 % (0-4); BLOOD GAS HCO3 22 mmol/L (22-26); BLOOD GAS METHEMOGLOBIN 0.8 % (0-2); BLOOD GAS O2 HGB SATURATION 88 % (90-100); BLOOD GAS OXYGEN CONTENT 15.3 Vol % (12.0-20.0); BLOOD GAS PCO2 28 mmHg (38-42); BLOOD GAS PO2 53 mmHg (61-120); BLOOD GAS TOTAL HGB 12.4 G/DL (12.0-16.0); TEMP CORR TO 98.6
[2016-12-23 13:59] LABS: CRITICAL VALUE YES; DRAW SITE RT RADIAL; FIO2 21 %; NUMBER OF ARTERIAL PUNCTURES 1; STAT YES; ULNAR PULSE PRESENT
--- NOTE | 2016-12-23 14:01 | RADRPT ---
EXAM DATE/TIME: 12/23/2016 13:28 [facility] COMPARISON: CHEST SINGLE AP, December 20, 2016, 13:52. INDICATIONS : Short of breath MEDICAL HISTORY : Hypertension. SURGICAL HISTORY : None. ENCOUNTER: Subsequent ACUITY: 4 - 6 days PAIN SCORE: 0/10 LOCATION: Chest FINDINGS: Patchy opacities are noted within the upper lobes bilaterally consistent with probable pneumonia. Cl inical correlation is recommended. The heart is stable. Degenerative changes are noted throughout t he thoracic spine. CONCLUSION: 1. Bilateral upper lobe patchiness consistent with probable pneumonia. Clinical correlation is jeison mmended. Agapito Whitney MD on December 23, 2016 at 13:49 Board Certified Radiologist. This report was verified electronically.
[2016-12-23] MEDS: CEFEPIME INJ 1,000 MG in SODIUM CHLORIDE 0.9% INJ 100 ML IV SCH (14:13)
[2016-12-23 14:40] LABS: CKMB 4.2 NG/ML (0.5-3.6)
[2016-12-23] MEDS ORDERED: IOHEXOL 350 MG/ML 10 ML VIAL (for RAD DIAG) IV ONE (19:23)
--- NOTE | 2016-12-23 19:40 | RADRPT ---
EXAM DATE/TIME: 12/23/2016 19:12 [facility] COMPARISON: CT THORAX W/O CONTRAST, December 20, 2016, 5:16. INDICATIONS : Chest pain and shortness of breath with elevated D dimer. IV CONTRAST: 63 cc Omnipaque 350 (iohexol) IV RADIATION DOSE: 12.35 CTDIvol (mGy) MEDICAL HISTORY : Hypertension. Cardiovascular disease SURGICAL HISTORY : Hysterectomy. ENCOUNTER: Initial ACUITY: 1 day PAIN SCALE: 5/10 LOCATION: substernal chest TECHNIQUE: Volumetric scanning of the chest was performed using a pulmonary embolism protocol MIP images were re constructed. Using automated exposure control and adjustment of the mA and/or kV according to patien t size, radiation dose was kept as low as reasonably achievable to obtain optimal diagnostic quality images. DICOM format image data is available electronically for review and comparison. Follow-up recommendations for incidentally detected pulmonary nodules are based at a minimum on nodul e size and patient risk factors according to Fleischner Society Guidelines. FINDINGS: PULMONARY ARTERIES: No filling defects are seen in the pulmonary arteries through the segmental level. LUNGS: There are regional areas of interstitial opacity increased ground substance in the upper lobes bilate rally causing air bronchograms further also multiple cystic areas in the posterior right upper lung w ith thickened wall about the cavities. A group of cysts measures in excess of 3.6 cm has a configura tion characteristic of cylindrical bronchiectasis. Patchy areas of interstitial infiltrate are prese nt in the lingula, right middle lobe, and lower lobes bilaterally. Most of the infiltrates are new w hen compared to 12/20/16 PLEURAE: Moderate-sized bilateral pleural effusions measuring 1.6 cm on the left and 1.1 cm on the right. MEDIASTINUM: Enlarged middle mediastinal nodes including a 1.4 cm pretracheal node and 1.2 cm precarinal nodes. S ubcarinal node measures 1.8 cm. MUSCULOSKELETAL: Healed fractures of the left posterior 6th through 8th ribs. MISCELLANEOUS: The visualized upper abdominal organs demonstrate no acute abnormality. CONCLUSION: 1. The study is negative for pulmonary embolism. 2. Multifocal interstitial infiltrates, cystic lesions, and areas of consolidation in both lungs with several mildly prominent middle mediastinal lymph nodes and bilateral pleural effusions are present a significant change when compared to prior CT thorax 3 days ago. The rapidity of onset suggests an infectious process. Toro Babb MD on December 23, 2016 at 19:29 Board Certified Radiologist. This report was verified electronically.
[2016-12-23] MEDS: DONEPEZIL HCL 5 MG TAB PO SCH (21:25)
[2016-12-23] MEDS: DOCUSATE SODIUM 100 MG CAP PO SCH (21:25)
[2016-12-24] VITALS (10 sets, daily range): BP systolic 126–179; BP diastolic 59–99; PULSE 73–111; RESP 18–20; TEMP 97.6–98.7; O2SAT 91–96
[2016-12-24] MEDS: guaiFENesin/DEXTROMETHORPHAN 200 MG/20 MG/10 ML CUP PO PRN ×3 (00:05→20:44)
[2016-12-24] MEDS: TEMAZEPAM 7.5 MG CAP PO PRN ×2 (00:09→20:43)
[2016-12-24] MEDS: RESP: ALBUTEROL 2.5 MG/IPRATROPIUM 0.5 MG NEB (SCH) INH ×4 (00:17→11:53)
[2016-12-24] MEDS: LEVOTHYROXINE SODIUM 50 MCG TAB PO SCH (04:42)
[2016-12-24] MEDS: AZITHROMYCIN INJ 500 MG in SODIUM CHLOR 0.9% 250 ML INJ 250 ML IV SCH (04:43)
[2016-12-24] MEDS: MEMANTINE HCL 10 MG TAB PO SCH ×2 (08:18→20:43)
[2016-12-24] MEDS: DOCUSATE SODIUM 50 MG/SENNA 8.6 MG TAB PO SCH ×2 (08:18→20:43)
[2016-12-24] MEDS: ASPIRIN 81 MG CHEW TAB CHEW SCH (08:18)
[2016-12-24] MEDS: FERROUS SULFATE 325 MG (65 MG ELEMENTAL IRON) TAB PO SCH (08:18)
[2016-12-24] MEDS: SODIUM CHLORIDE 0.9% FLUSH 10 ML FLUSH IV FLUSH SCH ×3 (08:19→20:44)
[2016-12-24 08:41] LABS: AUTOMATED NEUTROPHIL # 10.9 TH/MM3 (1.8-7.7); BASOPHIL % 0.2 % (0.0-2.0); EOSINOPHIL % 0.3 % (0.0-4.0); HEMATOCRIT 29.3 % (35.0-46.0); LYMPH % 13.5 % (9.0-44.0); LYMPHOCYTE # 1.9 TH/MM3 (1.0-4.8); MEAN CELL VOLUME 89.6 FL (80.0-100.0); MEAN CORPUSCULAR HEMOGLOBIN 29.8 PG (27.0-34.0); MEAN CORPUSCULAR HGB CONC 33.3 % (32.0-36.0); PLATELET COUNT 178 TH/MM3 (150-450); RED BLOOD COUNT 3.27 MIL/MM3 (4.00-5.30); RED CELL DISTRIBUTION WIDTH 13.1 % (11.6-17.2)
[2016-12-24 08:45] LABS: HEMO FLAGS AUTO DIFF
[2016-12-24 09:13] LABS: BICARBONATE 20.3 MEQ/L (21.0-32.0); POTASSIUM 3.9 MEQ/L (3.5-5.1)
[2016-12-24 09:14] LABS: BANDS 7 % (0-6); CORRECTED NUCLEATED RBC 1 /100 WBC (0-0); NEUTROPHIL # MANUAL DIFF 11.8 TH/MM3 (1.8-7.7); POLYS (SEG NEUTROPHILS) 77 % (16-70); WBC DIFF SAMPLE 100
[2016-12-24 09:16] LABS: PLATELET ESTIMATE SMEAR NORMAL (NORMAL); PLATELET MORPHOLOGY NORMAL (NORMAL); SCAN/DIFF FINAL DIFF MANUAL
[2016-12-24] MEDS: methylPREDNISolone SOD SUCC 40 MG/1 ML VIAL IV SCH (10:15)
[2016-12-24] MEDS: ENOXAPARIN SODIUM 30 MG/0.3 ML SYRINGE SQ SCH (10:15)
[2016-12-24] MEDS: CEFEPIME INJ 1,000 MG in SODIUM CHLORIDE 0.9% INJ 100 ML IV SCH (11:28)
[2016-12-24] MEDS: VANCOMYCIN 1,000 MG/NS 250 ML IV SCH ×2 (12:23)
--- NOTE | 2016-12-24 15:23 | EKG ---
Date Performed: 12/23/2016 Time Performed: 13:33:44 PTAGE: 86 years EKG: Sinus rhythm with PAC(s). rSr'(V1) - probable normal variant ST junctional depression is nonspecific Borderline E CG PREVIOUS TRACING : 12/20/2016 03.44 Compared to previous tracing, sinus rate is slower. ST depr essions have improved slightly. DOCTOR: Mauricio Gómez Interpretating Date/Time 12/24/2016 15:22:16
--- NOTE | 2016-12-24 15:41 | HHI.PR ---
Subjective Remarks Patient tells me she I'm not feeling well. She still has a terrible cough and is not able to cough up phlegm. She tells me she feels uncomfortable. Mild nausea but no vomiting. Tells me that she feels sad that her hasn't come visit her yet. Objective Vitals Vital Signs Date Time Temp Pulse Resp B/P Pulse Ox O2 Delivery O2 Flow Rate FiO2 12/24/16 12:00 98.0 83 18 171/79 96 12/24/16 08:43 95 Nasal Cannula 2.00 12/24/16 08:16 Nasal Cannula 2.00 12/24/16 08:00 98.6 97 18 155/73 91 12/24/16 07:42 91 12/24/16 04:00 98.7 73 18 126/59 94 12/24/16 00:00 98.1 96 20 130/78 91 12/23/16 21:25 97 Nasal Cannula 2.00 12/23/16 20:15 83 12/23/16 20:04 95 Nasal Cannula 2.00 12/23/16 20:00 98.1 93 18 145/70 91 12/23/16 16:03 98.2 86 18 146/68 93 I/O 12/23/16 12/23/16 12/23/16 12/24/16 12/24/16 12/24/16 07:00 15:00 23:00 07:00 15:00 23:00 Intake Total 240 ml 240 ml 120 ml 246 ml 720 ml Output Total 400 ml Balance 240 ml 240 ml 120 ml 246 ml 320 ml Intake Oral 240 ml 240 ml 120 ml 720 ml IV Total 246 ml Output Urine Total 400 ml # Voids 2 4 3 # Bowel Movements 2 1 1 1 Result Diagram: 12/24/16 0809 12/24/16 0809 Imaging Last Impressions Chest X-Ray 12/23/16 0000 Signed Impressions: Service Date/Time: Friday, December 23, 2016 13:28 - CONCLUSION: 1. Bilateral upper lobe patchiness consistent with probable pneumonia. Clinical correlation is recommended. Agapito Whitney MD CT Angiography 12/23/16 0000 Signed Impressions: Service Date/Time: Friday, December 23, 2016 19:12 - CONCLUSION: 1. The study is negative for pulmonary embolism. 2. Multifocal interstitial infiltrates, cystic lesions, and areas of consolidation in both lungs with several mildly prominent middle mediastinal lymph nodes and bilateral pleural effusions are present a significant change when compared to prior CT thorax 3 days ago. The rapidity of onset suggests an infectious process. Toro Babb MD Chest CT 12/20/16 0459 Signed Impressions: Service Date/Time: November 05:16 - CONCLUSION: 1. Perihilar groundglass opacity with nodularity. Although nonspecific the appearance favors an infectious or inflammatory process. 2. Coronary artery calcification. Rosales Dumont MD Objective Remarks GENERAL: Appears uncomfortable. Sitting up in bed SKIN: Warm and dry. HEAD: Normocephalic. EYES: No scleral icterus. No injection or drainage. NECK: Supple, trachea midline. No JVD. CARDIOVASCULAR: Regular rate and rhythm without murmurs RESPIRATORY: Bilateral rhonchi with faint crackles at the bases. There are decreased breath sounds. Poor air entry GASTROINTESTINAL: Abdomen soft, non-tender, nondistended. MUSCULOSKELETAL: No cyanosis, or edema. No calf tenderness. Negative Homans sign. Psych: Somewhat tearful A/P Problem List: (1) Septic shock ICD Code: A41.9 Status: Acute (2) Acute respiratory failure ICD Code: J96.00 Status: Acute (3) Community acquired pneumonia ICD Code: J18.9 Status: Acute (4) Alzheimer's dementia ICD Code: F02.80 Status: Chronic Assessment and Plan 86-year-old white female presents with acute respiratory failure with associated hypoxia likely from underlying community acquired pneumonia. //New-onset shortness of breath/chest pain w coughing/ CTA shows "Multifocal interstitial infiltrates, cystic lesions, and areas of consolidation in both lungs with several mildly prominent middle mediastinal lymph nodes and bilateral pleural effusions are present a significant change when compared to prior CT thorax 3 days ago". pulm consult in place. Acapella and IS ordered and pt has been encouraged to use these frequently. Encourage out of bed to chair and ambulation as tolerated. - PT following - Pt has been on steroids, IV solu-medrol BID, will switch to po prednisone and continue taper - give tessalon pearls prn //Septic shock Resolved //Suspected community-acquired pneumonia Continue antibiotic therapy //History of hypothyroidismcont Synthroid //History of chronic dementiacont Aricept //Hypertension, essential chroniccontinue to hold lisinopril due to acute kidney injury. remains elevated, start on amlodipine 5 mg daily. //Acute kidney injury superimposed on chronic kidney disease stage III due to sepsisimproved with IV hydration -Creatinine stable //DVT prophylaxisLovenox DO NOT RESUSCITATE status per son's wishes, patient does have a living will and advanced directive Discharge Planning pulm consult in place. taper steroids. IS/acapella use early mobilization IV abx Eve Joshi MD Dec 24, 2016 15:41
[2016-12-24] MEDS: amLODIPine BESYLATE 5 MG TAB PO SCH (16:54)
[2016-12-24] MEDS: RESP: ALBUTEROL 2.5 MG/3 ML NEB (PRN) INH (19:23)
[2016-12-24] MEDS: DOCUSATE SODIUM 100 MG CAP PO SCH (20:44)
[2016-12-24] MEDS: DONEPEZIL HCL 5 MG TAB PO SCH (20:44)
--- NOTE | 2016-12-24 21:48 | MB ---
cc: NEEL BOWLING DATE OF CONSULTATION 12/24/[address] Vera. REASON FOR CONSULTATION Lung infiltrate. HISTORY OF THE PRESENT ILLNESS Ms. Santillan is an 86-year-old female with a history of underlying dementia. The patient lives at [facility] in the [facility]. She is confused and feels that she lives at home and she is upset that her is not coming to see her. She was brought from the [facility] with worsening of her shortness of breath. She is cough and congestion, able to bring up some phlegm. She was found to have shortness of breath and hypoxia. She had a workup done. LABORATORY DATA Her CBC showed WBC count 14,000, hemoglobin 9.7, hematocrit 29.3, MCV 89, platelet count `178. Sodium 142, potassium 3.9, chloride 109, CO2 20, BUN 29, creatinine 1.21. Her blood gas shows pH 7.50, pCO2 28, pO2 53, bicarb 22, saturation 88% on room air. She had a blood culture which was negative. Urine negative has no growth. IMAGING She had a CT scan of the chest and it does not show any pulmonary embolism but it shows she has multifocal interstitial infiltrate with cystic lesion and area of consolidation and bronchiectasis. She has bilateral pleural effusions. The patient was started on antibiotics and steroids. She feels a little better but still has cough and able to bring up some phlegm. PAST MEDICAL HISTORY Significant for: 1. History of dementia. 2. History of hip surgery. 3. Laminectomy. 4. Tonsillectomy. MEDICATIONS She is currently takin. Prednisone 40 mg a day. 2. Amlodipine 5 mg a day. 3. Tessalon 200 mg three a day. 4. Vancomycin 1 gram q.24h. 5. Lovenox 30 mg q.24h. 6. Aspirin 81 mg a day. 7. Ferrous sulfate 325 milligrams daily. 8. Zithromax 500 mg daily. 9. Levothyroxine 50 mcg a day. 10. Namenda 10 mg a day. 11. Aricept 5 mg a day. 12. Colace 200 milligrams at nighttime. 13. Temazepam 7.5 milligrams at night time. 14. Cefepime 1 gram q. 24-hour. 15. Albuterol nebulizer treatment. ALLERGIES SHE IS ALLERGIC TO CODEINE, MORPHINE AND PERCOCET. SOCIAL HISTORY The patient lives in the halfway. No other history available. FAMILY HISTORY Not available. REVIEW OF SYSTEMS Cannot assess. PHYSICAL EXAMINATION GENERAL: Elderly female, anxious, starts crying easily. Mild short of breath. Not in any acute distress. VITAL SIGNS: Blood pressure 179/99, heart rate 81, respirations 18, temperature 97.6. HEENT: Pupils are equal, round and reactive to light. Oral mucosa, nasal mucosa normal. NECK: Supple. JVP not raised. CHEST: Air entry equal bilaterally. She has bilateral inspiratory rales. CARDIOVASCULAR: S1, S2 normal. ABDOMEN: Soft, nondistended. Bowel sounds are present. EXTREMITIES: No edema. IMPRESSION 1. Bilateral lung infiltrate, likely community-acquired pneumonia. However, she has interstitial prominence likely underlying fibrosis. 2. Small pleural effusion. 3. Dementia 4. Leukocytosis. PLAN We will continue with antibiotic. Check her cultures. Continue p.o. prednisone. Supplement her oxygen. Monitor electrolytes and CBC. Further treatment will depend on the course in the hospital. Thank you Dr. Vera for this consultation. MD MILY Raman/MUNIRA /4:34 PM /9:30 PM
[2016-12-25] VITALS (9 sets, daily range): BP systolic 129–153; BP diastolic 62–92; PULSE 79–101; RESP 16–20; TEMP 97.8–98.9; O2SAT 92–97
[2016-12-25] MEDS: guaiFENesin/DEXTROMETHORPHAN 200 MG/20 MG/10 ML CUP PO PRN (01:49)
[2016-12-25] MEDS: RESP: ALBUTEROL 2.5 MG/3 ML NEB (PRN) INH ×2 (03:15→08:07)
[2016-12-25] MEDS: AZITHROMYCIN INJ 500 MG in SODIUM CHLOR 0.9% 250 ML INJ 250 ML IV SCH (06:07)
[2016-12-25] MEDS: LEVOTHYROXINE SODIUM 50 MCG TAB PO SCH (06:08)
[2016-12-25] MEDS: BENZONATATE 100 MG CAP PO PRN (08:51)
[2016-12-25] MEDS: ASPIRIN 81 MG CHEW TAB CHEW SCH (08:51)
[2016-12-25] MEDS: FERROUS SULFATE 325 MG (65 MG ELEMENTAL IRON) TAB PO SCH (08:51)
[2016-12-25] MEDS: predniSONE 20 MG TAB PO SCH (08:51)
[2016-12-25] MEDS: MEMANTINE HCL 10 MG TAB PO SCH ×2 (08:51→20:03)
[2016-12-25] MEDS: amLODIPine BESYLATE 5 MG TAB PO SCH (08:51)
[2016-12-25] MEDS: DOCUSATE SODIUM 50 MG/SENNA 8.6 MG TAB PO SCH ×2 (08:52→20:03)
[2016-12-25] MEDS: SODIUM CHLORIDE 0.9% FLUSH 10 ML FLUSH IV FLUSH SCH ×2 (08:52→20:03)
[2016-12-25] MEDS: ENOXAPARIN SODIUM 30 MG/0.3 ML SYRINGE SQ SCH (08:52)
[2016-12-25] MEDS: CEFEPIME INJ 1,000 MG in SODIUM CHLORIDE 0.9% INJ 100 ML IV SCH (12:09)
[2016-12-25] MEDS: VANCOMYCIN 1,000 MG/NS 250 ML IV SCH ×2 (12:10)
[2016-12-25 12:41] LABS: AUTOMATED NEUTROPHIL # 10.8 TH/MM3 (1.8-7.7); BASOPHIL % 0.2 % (0.0-2.0); HEMATOCRIT 30.1 % (35.0-46.0); LYMPH % 8.9 % (9.0-44.0); LYMPHOCYTE # 1.1 TH/MM3 (1.0-4.8); MEAN CELL VOLUME 89.8 FL (80.0-100.0); MEAN CORPUSCULAR HEMOGLOBIN 29.7 PG (27.0-34.0); MONO % 6.1 % (0.0-8.0); NEUT % 84.8 % (16.0-70.0); PLATELET COUNT 192 TH/MM3 (150-450); RED BLOOD COUNT 3.36 MIL/MM3 (4.00-5.30); RED CELL DISTRIBUTION WIDTH 13.2 % (11.6-17.2); WHITE BLOOD COUNT 12.7 TH/MM3 (4.0-11.0)
[2016-12-25 12:42] LABS: HEMO FLAGS AUTO DIFF
[2016-12-25 13:10] LABS: BICARBONATE 20.3 MEQ/L (21.0-32.0); POTASSIUM 3.5 MEQ/L (3.5-5.1)
[2016-12-25 13:44] LABS: BANDS 4 % (0-6); CORRECTED NUCLEATED RBC 1 /100 WBC (0-0); METAMYELOCYTES 1 % (0-1); PLATELET ESTIMATE SMEAR NORMAL (NORMAL); PLATELET MORPHOLOGY NORMAL (NORMAL); POLYS (SEG NEUTROPHILS) 82 % (16-70); SCAN/DIFF FINAL DIFF MANUAL; WBC DIFF SAMPLE 100
--- NOTE | 2016-12-25 16:00 | HHI.PR ---
Subjective Remarks Pt states she is feeling better. Still coughing, sputum pink tinged (per RN). Breathing is improving a bit. No n/v/CP Objective Vitals Vital Signs Date Time Temp Pulse Resp B/P Pulse Ox O2 Delivery O2 Flow Rate FiO2 12/25/16 15:51 92 Nasal Cannula 2.00 12/25/16 12:00 98.1 91 20 129/62 92 12/25/16 09:03 Nasal Cannula 2.00 12/25/16 09:03 91 12/25/16 08:09 92 Nasal Cannula 3.00 12/25/16 08:00 97.9 94 20 153/66 93 12/25/16 04:00 98.1 100 20 144/92 92 12/25/16 00:00 98.9 101 18 137/83 97 12/24/16 23:12 98 Nasal Cannula 2.00 12/24/16 20:45 97 Nasal Cannula 2.00 12/24/16 20:30 111 12/24/16 20:00 97.8 107 18 159/89 91 12/24/16 18:00 88 12/24/16 17:54 Nasal Cannula 2.00 12/24/16 16:00 97.6 81 18 179/99 93 I/O 12/24/16 12/24/16 12/24/16 12/25/16 12/25/16 12/25/16 07:00 15:00 23:00 07:00 15:00 23:00 Intake Total 246 ml 720 ml 256 ml Output Total 400 ml 30 ml Balance 246 ml 320 ml -30 ml 256 ml Intake Oral 720 ml IV Total 246 ml 256 ml Output Urine Total 400 ml 30 ml # Voids 1 # Bowel Movements 1 1 Result Diagram: 12/25/16 1138 12/25/16 1138 Imaging Last Impressions Chest X-Ray 12/23/16 0000 Signed Impressions: Service Date/Time: Friday, December 23, 2016 13:28 - CONCLUSION: 1. Bilateral upper lobe patchiness consistent with probable pneumonia. Clinical correlation is recommended. Agapito Whitney MD CT Angiography 12/23/16 0000 Signed Impressions: Service Date/Time: Friday, December 23, 2016 19:12 - CONCLUSION: 1. The study is negative for pulmonary embolism. 2. Multifocal interstitial infiltrates, cystic lesions, and areas of consolidation in both lungs with several mildly prominent middle mediastinal lymph nodes and bilateral pleural effusions are present a significant change when compared to prior CT thorax 3 days ago. The rapidity of onset suggests an infectious process. Toro Babb MD Chest CT 12/20/16 0459 Signed Impressions: Service Date/Time: , December 20, 2016 05:16 - CONCLUSION: 1. Perihilar groundglass opacity with nodularity. Although nonspecific the appearance favors an infectious or inflammatory process. 2. Coronary artery calcification. Rosales Dumont MD Objective Remarks GENERAL: Appears more comfortable today. Sitting up in bed SKIN: Warm and dry. HEAD: Normocephalic. EYES: No scleral icterus. No injection or drainage. NECK: Supple, trachea midline. No JVD. CARDIOVASCULAR: Regular rate and rhythm without murmurs RESPIRATORY: Bilateral rhonchi with faint crackles at the bases. aeration better today. GASTROINTESTINAL: Abdomen soft, non-tender, nondistended. MUSCULOSKELETAL: No cyanosis, or edema. No calf tenderness. Negative Homans sign. Psych: smiling today A/P Problem List: (1) Septic shock ICD Code: A41.9 Status: Acute (2) Acute respiratory failure ICD Code: J96.00 Status: Acute (3) Community acquired pneumonia ICD Code: J18.9 Status: Acute (4) Alzheimer's dementia ICD Code: F02.80 Status: Chronic Assessment and Plan 86-year-old white female presents with acute respiratory failure with associated hypoxia likely from underlying community acquired pneumonia. //New-onset shortness of breath/chest pain w coughing/PNA CTA shows "Multifocal interstitial infiltrates, cystic lesions, and areas of consolidation in both lungs with several mildly prominent middle mediastinal lymph nodes and bilateral pleural effusions are present a significant change when compared to prior CT thorax 3 days ago". pulm following. Appreciate assistance Acapella and IS ordered and at bedside. I spent some time showing the patient how to use it. She has been encouraged to use these frequently. Encourage out of bed to chair and ambulation as tolerated. - PT following - Pt has been on steroids, IV solu-medrol BID, now on po prednisone and continue taper - give tessalon pearls prn //Septic shock Resolved //Suspected community-acquired pneumonia Continue antibiotic therapy //History of hypothyroidismcont Synthroid //History of chronic dementiacont Aricept //Hypertension, essential chroniccontinue to hold lisinopril due to acute kidney injury. remains elevated, start on amlodipine 5 mg daily. //Acute kidney injury superimposed on chronic kidney disease stage III due to sepsisimproved with IV hydration -Creatinine stable //DVT prophylaxisLovenox DO NOT RESUSCITATE status per son's wishes, patient does have a living will and advanced directive Discharge Planning pulm following. Pt slowly improving but still coughing a lot. continue to taper steroids. IS/acapella use early mobilization IV abx Eve Joshi MD Dec 25, 2016 16:00
--- NOTE | 2016-12-25 19:44 | HHI.PR ---
Subjective Remarks 86 YOWF with Bilat Pn, Dementia Up in chair breathing better no fever Objective Vital Signs Vital Signs Date Time Temp Pulse Resp B/P Pulse Ox O2 Delivery O2 Flow Rate FiO2 12/25/16 16:00 97.8 88 20 148/70 94 12/25/16 15:51 92 Nasal Cannula 2.00 12/25/16 12:00 98.1 91 20 129/62 92 12/25/16 09:03 Nasal Cannula 2.00 12/25/16 09:03 91 12/25/16 08:09 92 Nasal Cannula 3.00 12/25/16 08:00 97.9 94 20 153/66 93 12/25/16 04:00 98.1 100 20 144/92 92 12/25/16 00:00 98.9 101 18 137/83 97 12/24/16 23:12 98 Nasal Cannula 2.00 12/24/16 20:45 97 Nasal Cannula 2.00 12/24/16 20:30 111 12/24/16 20:00 97.8 107 18 159/89 91 I/O 12/24/16 12/24/16 12/24/16 12/25/16 12/25/16 12/25/16 07:00 15:00 23:00 07:00 15:00 23:00 Intake Total 246 ml 720 ml 256 ml 240 ml 350 ml Output Total 400 ml 30 ml 400 ml Balance 246 ml 320 ml -30 ml 256 ml -160 ml 350 ml Intake Oral 720 ml 240 ml IV Total 246 ml 256 ml 350 ml Output Urine Total 400 ml 30 ml 400 ml # Voids 1 # Bowel Movements 1 1 0 Result Diagram: 12/25/16 1138 12/25/16 1138 Objective Remarks GENERAL: Elderly WF, NAD SKIN: Warm and dry. HEAD: Normocephalic. EYES: No scleral icterus. No injection or drainage. NECK: Supple, trachea midline. No JVD or lymphadenopathy. CARDIOVASCULAR: Regular rate and rhythm without murmurs, gallops, or rubs. RESPIRATORY: Breath sounds equal bilaterally. No accessory muscle use. GASTROINTESTINAL: Abdomen soft, non-tender, nondistended. MUSCULOSKELETAL: No cyanosis, or edema. BACK: Nontender without obvious deformity. No CVA tenderness. A/P Assessment and Plan Bilat Pneumonia Leucocytosis Pleural effusion, small Dementia PLAN: Cont Abx Vanco and Cefepime Check cultures monitor WBC Supplement 02 Marko Roberson MD Dec 25, 2016 19:44
[2016-12-25] MEDS: DONEPEZIL HCL 5 MG TAB PO SCH (20:03)
[2016-12-25] MEDS: DOCUSATE SODIUM 100 MG CAP PO SCH (20:03)
[2016-12-26] VITALS (8 sets, daily range): BP systolic 111–157; BP diastolic 59–74; PULSE 74–102; RESP 18–20; TEMP 97.7–100; O2SAT 92–97
[2016-12-26] MEDS: TEMAZEPAM 7.5 MG CAP PO PRN ×2 (00:40→21:20)
[2016-12-26] MEDS: LEVOTHYROXINE SODIUM 50 MCG TAB PO SCH (05:59)
[2016-12-26] MEDS: AZITHROMYCIN INJ 500 MG in SODIUM CHLOR 0.9% 250 ML INJ 250 ML IV SCH (05:59)
[2016-12-26] MEDS: guaiFENesin/DEXTROMETHORPHAN 200 MG/20 MG/10 ML CUP PO PRN (06:05)
[2016-12-26 07:27] LABS: AUTOMATED NEUTROPHIL # 7.2 TH/MM3 (1.8-7.7); BASOPHIL % 0.4 % (0.0-2.0); EOSINOPHIL # 0.1 TH/MM3 (0-0.4); EOSINOPHIL % 0.7 % (0.0-4.0); HEMATOCRIT 27.7 % (35.0-46.0); LYMPH % 20.6 % (9.0-44.0); LYMPHOCYTE # 2.2 TH/MM3 (1.0-4.8); MEAN CELL VOLUME 89.4 FL (80.0-100.0); MEAN CORPUSCULAR HEMOGLOBIN 30.7 PG (27.0-34.0); MEAN CORPUSCULAR HGB CONC 34.3 % (32.0-36.0); MONO % 9.7 % (0.0-8.0); NEUT % 68.6 % (16.0-70.0); PLATELET COUNT 168 TH/MM3 (150-450); RED CELL DISTRIBUTION WIDTH 12.9 % (11.6-17.2); WHITE BLOOD COUNT 10.5 TH/MM3 (4.0-11.0)
[2016-12-26 07:34] LABS: HEMO FLAGS AUTO DIFF
[2016-12-26 07:47] LABS: BICARBONATE 22.5 MEQ/L (21.0-32.0); POTASSIUM 3.1 MEQ/L (3.5-5.1)
[2016-12-26] MEDS ORDERED: POTASSIUM CHLORIDE 10 MEQ CONTROLLED RELEASE TAB PO ONE (08:15)
[2016-12-26] MEDS: LACTOBACILLUS ACIDOPHILUS TAB PO SCH ×2 (08:54→21:18)
[2016-12-26] MEDS: FERROUS SULFATE 325 MG (65 MG ELEMENTAL IRON) TAB PO SCH (08:55)
[2016-12-26] MEDS: DOCUSATE SODIUM 50 MG/SENNA 8.6 MG TAB PO SCH ×2 (08:55→21:18)
[2016-12-26] MEDS: amLODIPine BESYLATE 5 MG TAB PO SCH (08:55)
[2016-12-26] MEDS: predniSONE 20 MG TAB PO SCH (08:55)
[2016-12-26] MEDS: ENOXAPARIN SODIUM 30 MG/0.3 ML SYRINGE SQ SCH (08:55)
[2016-12-26] MEDS: ASPIRIN 81 MG CHEW TAB CHEW SCH (08:55)
[2016-12-26] MEDS: SODIUM CHLORIDE 0.9% FLUSH 10 ML FLUSH IV FLUSH SCH ×2 (08:55→21:19)
[2016-12-26] MEDS: MEMANTINE HCL 10 MG TAB PO SCH ×2 (08:55→21:18)
[2016-12-26 09:15] LABS: BANDS 3 % (0-6); CORRECTED NUCLEATED RBC 1 /100 WBC (0-0); EOSINOPHILS 2 % (0-4); METAMYELOCYTES 1 % (0-1); MYELOCYTES 3 % (0-0); NEUTROPHIL # MANUAL DIFF 6.8 TH/MM3 (1.8-7.7); POLYS (SEG NEUTROPHILS) 58 % (16-70); WBC DIFF SAMPLE 100
[2016-12-26 09:17] LABS: PLATELET ESTIMATE SMEAR NORMAL (NORMAL)
[2016-12-26 09:18] LABS: PLATELET MORPHOLOGY NORMAL (NORMAL); SCAN/DIFF FINAL DIFF MANUAL
--- NOTE | 2016-12-26 09:42 | HHI.PR ---
Subjective Remarks Follow-up visit pneumonia, cough, blood-tinged sputum. Patient seen and examined today. Reports she continues to have cough. Constantly coughing while interviewing patient. States she continues to also have blood-tinged secretions occasionally when she brings up phlegm. Continues to be on nasal cannula. States she is tired and not feeling well. Unable to elaborate on why she is not feeling well. Complaints of cough discomfort. Shortness of breath remains with exertion. Denies nausea, vomiting, diarrhea. Denies palpitations , headaches. Denies dysuria. Objective Vitals Vital Signs Date Time Temp Pulse Resp B/P Pulse Ox O2 Delivery O2 Flow Rate FiO2 12/26/16 04:00 Nasal Cannula 2.00 12/26/16 04:00 98.9 102 19 121/62 93 12/26/16 00:00 97.9 97 20 126/74 96 12/26/16 00:00 Nasal Cannula 2.00 12/25/16 20:00 Nasal Cannula 2.00 12/25/16 20:00 90 12/25/16 20:00 98.0 79 16 129/65 96 12/25/16 16:00 97.8 88 20 148/70 94 12/25/16 15:51 92 Nasal Cannula 2.00 12/25/16 12:00 98.1 91 20 129/62 92 I/O 12/25/16 12/25/16 12/25/16 12/26/16 12/26/16 12/26/16 07:00 15:00 23:00 07:00 15:00 23:00 Intake Total 256 ml 240 ml 690 ml 100 ml Output Total 400 ml 380 ml 300 ml Balance 256 ml -160 ml 310 ml -200 ml Intake Oral 240 ml 340 ml 100 ml IV Total 256 ml 350 ml Output Urine Total 400 ml 380 ml 300 ml # Voids 1 # Bowel Movements 1 0 1 3 Result Diagram: 12/26/16 0646 12/26/16 0644 Imaging Last Impressions Chest X-Ray 12/23/16 0000 Signed Impressions: Service Date/Time: Friday, December 23, 2016 13:28 - CONCLUSION: 1. Bilateral upper lobe patchiness consistent with probable pneumonia. Clinical correlation is recommended. Agapito Whitney MD CT Angiography 12/23/16 0000 Signed Impressions: Service Date/Time: Red, December 23, 2016 19:12 - CONCLUSION: 1. The study is negative for pulmonary embolism. 2. Multifocal interstitial infiltrates, cystic lesions, and areas of consolidation in both lungs with several mildly prominent middle mediastinal lymph nodes and bilateral pleural effusions are present a significant change when compared to prior CT thorax 3 days ago. The rapidity of onset suggests an infectious process. Toro Babb MD Chest CT 12/20/16 0459 Signed Impressions: Service Date/Time: November 05:16 - CONCLUSION: 1. Perihilar groundglass opacity with nodularity. Although nonspecific the appearance favors an infectious or inflammatory process. 2. Coronary artery calcification. Rosales Dumont MD Objective Remarks GENERAL: This is a well-nourished, well-developed patient, in no apparent distress. SKIN: Warm and dry. HEENT: Normocephalic. Pupils equal round and reactive. Nose without bleeding. Airway patent. NECK: Trachea midline. CARDIOVASCULAR: Regular rate and rhythm without murmurs, gallops, or rubs. RESPIRATORY: Coarse breath sounds. Moderate air entry. GASTROINTESTINAL: Abdomen soft, non-tender, nondistended. Bowel Sounds normoactive x4. MUSCULOSKELETAL: Extremities without clubbing, cyanosis, or edema. NEUROLOGICAL: Awake and alert. Oriented to place, person. Moves all extremities weakly. Normal speech. A/P Problem List: (1) Septic shock ICD Code: A41.9 Status: Acute (2) Acute respiratory failure ICD Code: J96.00 Status: Acute (3) Community acquired pneumonia ICD Code: J18.9 Status: Acute (4) Alzheimer's dementia ICD Code: F02.80 Status: Chronic Assessment and Plan 86-year-old white female presents with acute respiratory failure with associated hypoxia likely from underlying community acquired pneumonia. New-onset shortness of breath/chest pain w coughing/PNA Community-acquired pneumonia Sepsis - CTA shows "Multifocal interstitial infiltrates, cystic lesions, and areas of consolidation in both lungs with several mildly prominent middle mediastinal lymph nodes and bilateral pleural effusions are present a significant change when compared to prior CT thorax 3 days ago". pulm following. Appreciate assistance - Acapella and IS ordered and at bedside. Encourage use. OOB to chair encouraged - PT following. - Pt has been on steroids, was on IV solu-medrol BID, now on po prednisone and continue taper - Continue IV antibiotics azithromycin, cefepime, vancomycin. May have to taper antibiotic use, may DC Vanco - Blood cultures no growth in 5 days. Leukocytosis improved, resolved - Tessalon pearls prn Oral Tamara - Oral care - Clotrimazole troches Hypokalemia - K+ 3.1 - Supplemented - Recheck tomorrow History of hypothyroidismcont Synthroid History of chronic dementiacont Aricept, Namenda Hypertension, essential chroniccontinue to hold lisinopril due to acute kidney injury. - Added amlodipine 5 mg daily. - Monitor BP trend. Improved Acute kidney injury superimposed on chronic kidney disease stage III due to sepsis - improved with IV hydration - Creatinine stable DVT prophylaxisLovenox DO NOT RESUSCITATE status per son's wishes, patient does have a living will and advanced directive Discussed with patient, nursing, Yuridia Garcia Dec 26, 2016 09:42
[2016-12-26] MEDS: CLOTRIMAZOLE 10 MG TROCHE BUCCAL SCH ×4 (10:00→21:19)
[2016-12-26] MEDS ORDERED: POTASSIUM CHLOR 20 MEQ PREMIX 100 ML IV SCH (11:00)
[2016-12-26] MEDS: BENZONATATE 100 MG CAP PO PRN ×2 (11:14→21:20)
[2016-12-26] MEDS: CEFEPIME INJ 1,000 MG in SODIUM CHLORIDE 0.9% INJ 100 ML IV SCH (11:15)
[2016-12-26] MEDS ORDERED: PHARMACY ORDERED LAB ONE (11:45)
[2016-12-26] MEDS ORDERED: POTASSIUM CHLOR 20 MEQ PREMIX 100 ML IV ONE (12:00)
[2016-12-26] MEDS: VANCOMYCIN 1,000 MG/NS 250 ML IV SCH ×2 (12:52)
[2016-12-26] MEDS ORDERED: SODIUM CHLOR 0.9% 1000 ML INJ 1,000 ML IV SCH (13:15)
--- NOTE | 2016-12-26 20:11 | HHI.PR ---
Subjective Remarks 86 YOWF with Bilat Pn, Dementia Up in chair breathing better no fever Alert awake,intermittentally confused Objective Vital Signs Vital Signs Date Time Temp Pulse Resp B/P Pulse Ox O2 Delivery O2 Flow Rate FiO2 12/26/16 16:00 97.7 78 20 136/60 97 12/26/16 13:05 74 12/26/16 12:00 100.0 88 20 131/64 96 12/26/16 09:23 Nasal Cannula 2.00 12/26/16 08:00 92 Nasal Cannula 2.00 12/26/16 08:00 98.7 86 20 157/68 92 12/26/16 04:00 Nasal Cannula 2.00 12/26/16 04:00 98.9 102 19 121/62 93 12/26/16 00:00 97.9 97 20 126/74 96 12/26/16 00:00 Nasal Cannula 2.00 I/O 12/25/16 12/25/16 12/25/16 12/26/16 12/26/16 12/26/16 07:00 15:00 23:00 07:00 15:00 23:00 Intake Total 256 ml 240 ml 690 ml 100 ml 480 ml Output Total 400 ml 380 ml 300 ml 400 ml Balance 256 ml -160 ml 310 ml -200 ml 80 ml Intake Oral 240 ml 340 ml 100 ml 480 ml IV Total 256 ml 350 ml Output Urine Total 400 ml 380 ml 300 ml 400 ml # Voids 1 1 # Bowel Movements 1 0 1 3 0 Result Diagram: 12/26/16 0646 12/26/16 0644 Objective Remarks GENERAL: Elderly WF, NAD SKIN: Warm and dry. HEAD: Normocephalic. EYES: No scleral icterus. No injection or drainage. NECK: Supple, trachea midline. No JVD or lymphadenopathy. CARDIOVASCULAR: Regular rate and rhythm without murmurs, gallops, or rubs. RESPIRATORY: Breath sounds equal bilaterally. No accessory muscle use. GASTROINTESTINAL: Abdomen soft, non-tender, nondistended. MUSCULOSKELETAL: No cyanosis, or edema. BACK: Nontender without obvious deformity. No CVA tenderness. A/P Assessment and Plan Bilat Pneumonia Leucocytosis Pleural effusion, small Dementia PLAN: Cont Abx Vanco and Cefepime Check cultures monitor WBC Supplement 02 Wean 02 to keep sat >90% Marko Roberson MD Dec 26, 2016 20:11
[2016-12-26] MEDS: DOCUSATE SODIUM 100 MG CAP PO SCH (21:19)
[2016-12-26] MEDS: DONEPEZIL HCL 5 MG TAB PO SCH (21:19)
[2016-12-27] VITALS (9 sets, daily range): BP systolic 115–141; BP diastolic 57–77; PULSE 73–84; RESP 18–22; TEMP 97.3–97.9; O2SAT 92–97
[2016-12-27] MEDS: CLOTRIMAZOLE 10 MG TROCHE BUCCAL SCH ×5 (05:41→20:30)
[2016-12-27] MEDS: LEVOTHYROXINE SODIUM 50 MCG TAB PO SCH (05:41)
[2016-12-27] MEDS: AZITHROMYCIN INJ 500 MG in SODIUM CHLOR 0.9% 250 ML INJ 250 ML IV SCH (05:41)
[2016-12-27] MEDS: ACETAMINOPHEN 325 MG TAB PO PRN (06:18)
[2016-12-27] MEDS: BENZONATATE 100 MG CAP PO PRN (06:19)
[2016-12-27] MEDS: RESP: ALBUTEROL 2.5 MG/3 ML NEB (PRN) INH (08:06)
[2016-12-27] MEDS: DOCUSATE SODIUM 50 MG/SENNA 8.6 MG TAB PO SCH ×2 (08:26→20:30)
[2016-12-27] MEDS: SODIUM CHLORIDE 0.9% FLUSH 10 ML FLUSH IV FLUSH SCH ×2 (08:26→20:30)
[2016-12-27] MEDS: amLODIPine BESYLATE 5 MG TAB PO SCH (08:26)
[2016-12-27] MEDS: predniSONE 20 MG TAB PO SCH (08:26)
[2016-12-27] MEDS: MEMANTINE HCL 10 MG TAB PO SCH ×2 (08:27→20:30)
[2016-12-27] MEDS: FERROUS SULFATE 325 MG (65 MG ELEMENTAL IRON) TAB PO SCH (08:27)
[2016-12-27] MEDS: ASPIRIN 81 MG CHEW TAB CHEW SCH (08:27)
[2016-12-27] MEDS: LACTOBACILLUS ACIDOPHILUS TAB PO SCH ×2 (08:27→20:30)
[2016-12-27 08:36] LABS: HEMATOCRIT 25.9 % (35.0-46.0); MEAN CELL VOLUME 90.1 FL (80.0-100.0); MEAN CORPUSCULAR HEMOGLOBIN 30.6 PG (27.0-34.0); MEAN CORPUSCULAR HGB CONC 33.9 % (32.0-36.0); PLATELET COUNT 180 TH/MM3 (150-450); RED BLOOD COUNT 2.88 MIL/MM3 (4.00-5.30); RED CELL DISTRIBUTION WIDTH 12.9 % (11.6-17.2); REVIEW FLAG FINAL; WHITE BLOOD COUNT 10.4 TH/MM3 (4.0-11.0)
[2016-12-27 09:11] LABS: BICARBONATE 22.9 MEQ/L (21.0-32.0); POTASSIUM 3.4 MEQ/L (3.5-5.1)
[2016-12-27] MEDS: CEFEPIME INJ 1,000 MG in SODIUM CHLORIDE 0.9% INJ 100 ML IV SCH (11:27)
[2016-12-27] MEDS: ENOXAPARIN SODIUM 30 MG/0.3 ML SYRINGE SQ SCH (11:27)
[2016-12-27] MEDS: VANCOMYCIN 1,000 MG/NS 250 ML IV SCH ×2 (11:54)
--- NOTE | 2016-12-27 16:39 | HHI.PR ---
Objective Vital Signs Date Time Temp Pulse Resp B/P Pulse Ox O2 Delivery O2 Flow Rate FiO2 12/27/16 16:17 97.8 78 19 132/63 97 12/27/16 12:11 97.9 75 18 131/57 96 12/27/16 08:22 97.4 81 18 126/77 97 12/27/16 08:15 Nasal Cannula 3.00 12/27/16 08:07 95 Nasal Cannula 3.00 12/27/16 07:45 73 12/27/16 04:00 97.3 75 18 115/58 96 12/27/16 00:00 97.5 74 18 120/58 95 12/26/16 20:14 74 12/26/16 20:00 Nasal Cannula 3.00 12/26/16 20:00 97.8 78 18 111/59 97 I/O 12/26/16 12/26/16 12/26/16 12/27/16 12/27/16 12/27/16 07:00 15:00 23:00 07:00 15:00 23:00 Intake Total 100 ml 480 ml 480 ml 834 ml Output Total 300 ml 400 ml 0 ml Balance -200 ml 80 ml 480 ml 834 ml Intake Oral 100 ml 480 ml 480 ml 480 ml IV Total 354 ml Output Urine Total 300 ml 400 ml Stool Total 0 ml # Voids 1 4 4 # Bowel Movements 3 0 0 1 Result Diagram: 12/27/16 0808 12/27/16 0808 A/P Problem List: (1) Septic shock ICD Code: A41.9 (2) Alzheimer's dementia ICD Code: F02.80 (3) Community acquired pneumonia ICD Code: J18.9 (4) Acute respiratory failure ICD Code: J96.00 (5) Pneumonia ICD Code: J18.9 Assessment and Plan Assessment and Plan 86-year-old female admitted secondary to community-acquired pneumonia with acute respiratory failure and hypoxia. New-onset shortness of breath/chest pain w coughing/PNA Community-acquired pneumonia Sepsis Sepsis resolved. Patient continues to be oxygen dependent Pulmonology following Continue azithromycin, cefepime, vancomycin Monitor CBC next Oral Tamara Clotrimazole troches Hypokalemia Follow potassium levels Replace as needed Hypothyroidism Continue Synthroid Dementia Continue Aricept, Namenda Hypertension Continue amlodipine Lisinopril held secondary to BRIANNE Acute kidney injury superimposed on chronic kidney disease stage III due to sepsis Improving Continue to monitor renal function DVT prophylaxis Lovenox CODE STATUS DO NOT RESUSCITATE Problem Qualifiers (1) Pneumonia: Qualified Code: J18.9 - Pneumonia of both lungs due to infectious organism, unspecified part of lung Kranthi Kidd MD Dec 27, 2016 16:39
--- NOTE | 2016-12-27 20:16 | HHI.PR ---
Subjective Remarks 86 YOWF with Bilat Pn, Dementia Up in chair breathing better no fever Alert awake,intermittentally confused " my is not coming to see me" Objective Vital Signs Vital Signs Date Time Temp Pulse Resp B/P Pulse Ox O2 Delivery O2 Flow Rate FiO2 12/27/16 16:17 97.8 78 19 132/63 97 12/27/16 12:11 97.9 75 18 131/57 96 12/27/16 08:22 97.4 81 18 126/77 97 12/27/16 08:15 Nasal Cannula 3.00 12/27/16 08:07 95 Nasal Cannula 3.00 12/27/16 07:45 73 12/27/16 04:00 97.3 75 18 115/58 96 12/27/16 00:00 97.5 74 18 120/58 95 I/O 12/26/16 12/26/16 12/26/16 12/27/16 12/27/16 12/27/16 07:00 15:00 23:00 07:00 15:00 23:00 Intake Total 100 ml 480 ml 480 ml 834 ml Output Total 300 ml 400 ml 0 ml Balance -200 ml 80 ml 480 ml 834 ml Intake Oral 100 ml 480 ml 480 ml 480 ml IV Total 354 ml Output Urine Total 300 ml 400 ml Stool Total 0 ml # Voids 1 4 4 # Bowel Movements 3 0 0 1 Result Diagram: 12/27/16 0808 12/27/16 0808 Objective Remarks GENERAL: Elderly WF, NAD SKIN: Warm and dry. HEAD: Normocephalic. EYES: No scleral icterus. No injection or drainage. NECK: Supple, trachea midline. No JVD or lymphadenopathy. CARDIOVASCULAR: Regular rate and rhythm without murmurs, gallops, or rubs. RESPIRATORY: Breath sounds equal bilaterally. No accessory muscle use. GASTROINTESTINAL: Abdomen soft, non-tender, nondistended. MUSCULOSKELETAL: No cyanosis, or edema. BACK: Nontender without obvious deformity. No CVA tenderness. A/P Assessment and Plan Bilat Pneumonia Leucocytosis Pleural effusion, small Dementia PLAN: Cont Abx Vanco and Cefepime Check cultures monitor WBC Stable on RA Marko Roberson MD Dec 27, 2016 20:16
[2016-12-27] MEDS: DONEPEZIL HCL 5 MG TAB PO SCH (20:30)
[2016-12-27] MEDS: DOCUSATE SODIUM 100 MG CAP PO SCH (20:30)
[2016-12-27] MEDS: TEMAZEPAM 7.5 MG CAP PO PRN (21:27)
[2016-12-28] VITALS (9 sets, daily range): BP systolic 125–152; BP diastolic 64–75; PULSE 70–97; RESP 18–23; TEMP 97.4–98.3; O2SAT 93–99
[2016-12-28] MEDS: ACETAMINOPHEN 325 MG TAB PO PRN (00:49)
[2016-12-28] MEDS ORDERED: HYDROmorphone HCL PF 1 MG/ML VIAL IV PUSH ONE (01:00)
[2016-12-28] MEDS: LEVOTHYROXINE SODIUM 50 MCG TAB PO SCH (05:38)
[2016-12-28] MEDS: CLOTRIMAZOLE 10 MG TROCHE BUCCAL SCH ×4 (05:38→17:08)
[2016-12-28] MEDS: AZITHROMYCIN INJ 500 MG in SODIUM CHLOR 0.9% 250 ML INJ 250 ML IV SCH (05:38)
[2016-12-28] MEDS: MEMANTINE HCL 10 MG TAB PO SCH (07:59)
[2016-12-28] MEDS: DOCUSATE SODIUM 50 MG/SENNA 8.6 MG TAB PO SCH (07:59)
[2016-12-28] MEDS: LACTOBACILLUS ACIDOPHILUS TAB PO SCH (07:59)
[2016-12-28] MEDS: predniSONE 20 MG TAB PO SCH (07:59)
[2016-12-28] MEDS: FERROUS SULFATE 325 MG (65 MG ELEMENTAL IRON) TAB PO SCH (08:00)
[2016-12-28] MEDS: ASPIRIN 81 MG CHEW TAB CHEW SCH (08:00)
[2016-12-28] MEDS: SODIUM CHLORIDE 0.9% FLUSH 10 ML FLUSH IV FLUSH SCH (08:02)
[2016-12-28] MEDS: amLODIPine BESYLATE 5 MG TAB PO SCH (08:02)
[2016-12-28 09:03] LABS: AUTOMATED NEUTROPHIL # 7.2 TH/MM3 (1.8-7.7); BASOPHIL % 0.4 % (0.0-2.0); EOSINOPHIL # 0.2 TH/MM3 (0-0.4); EOSINOPHIL % 1.4 % (0.0-4.0); HEMATOCRIT 26.3 % (35.0-46.0); LYMPH % 29.8 % (9.0-44.0); LYMPHOCYTE # 3.6 TH/MM3 (1.0-4.8); MEAN CELL VOLUME 89.9 FL (80.0-100.0); MEAN CORPUSCULAR HEMOGLOBIN 30.2 PG (27.0-34.0); MEAN CORPUSCULAR HGB CONC 33.6 % (32.0-36.0); MONO % 9.6 % (0.0-8.0); NEUT % 58.8 % (16.0-70.0); PLATELET COUNT 221 TH/MM3 (150-450); RED BLOOD COUNT 2.92 MIL/MM3 (4.00-5.30); RED CELL DISTRIBUTION WIDTH 13.4 % (11.6-17.2); WHITE BLOOD COUNT 12.2 TH/MM3 (4.0-11.0)
[2016-12-28 09:15] LABS: ANION GAP 8 MEQ/L (5-15); AST (GOT) 20 U/L (15-37); BICARBONATE 23.7 MEQ/L (21.0-32.0); BLOOD UREA NITROGEN 21 MG/DL (7-18); CHLORIDE 110 MEQ/L (98-107); GLOMERULAR FILTRATION RATE 45 ML/MIN (>89); POTASSIUM 3.3 MEQ/L (3.5-5.1); SODIUM (NA) 142 MEQ/L (136-145)
[2016-12-28 09:16] LABS: ALT (GPT) 31 U/L (10-53)
[2016-12-28 09:18] LABS: ALKALINE PHOSPHATASE 71 U/L (45-117); TOTAL BILIRUBIN ADULT 0.4 MG/DL (0.2-1.0)
[2016-12-28 09:21] LABS: HEMO FLAGS AUTO DIFF
[2016-12-28 09:54] LABS: BANDS 5 % (0-6); EOSINOPHILS 1 % (0-4); MYELOCYTES 1 % (0-0); NEUTROPHIL # MANUAL DIFF 8.5 TH/MM3 (1.8-7.7); POLYS (SEG NEUTROPHILS) 64 % (16-70); SCAN/DIFF FINAL DIFF MANUAL; WBC DIFF SAMPLE 100
[2016-12-28 09:55] LABS: PLATELET ESTIMATE SMEAR NORMAL (NORMAL); PLATELET MORPHOLOGY NORMAL (NORMAL); TOXIC GRANULATION 1+ (NORMAL)
[2016-12-28] MEDS: ENOXAPARIN SODIUM 30 MG/0.3 ML SYRINGE SQ SCH (10:00)
[2016-12-28] MEDS: CEFEPIME INJ 1,000 MG in SODIUM CHLORIDE 0.9% INJ 100 ML IV SCH (12:34)
[2016-12-28] MEDS: VANCOMYCIN 1,000 MG/NS 250 ML IV SCH ×2 (13:49)
--- NOTE | 2016-12-28 14:38 | HHI.FF ---
Face to Face Verification Diagnosis: (1) Pneumonia (2) Septic shock (3) Alzheimer's dementia (4) Community acquired pneumonia (5) Acute respiratory failure Physical Therapy Order: Evaluate and Treat Occupational Therapy Order: Evaluate and Treat Home Health Nursing Order: Medical education Signs/symptoms of disease process Oxygen administration education I have seen patient Domonique Santillan on 12/28/16. My clinical findings support the need for the requested home health care services because: Ltd mobility - disease progression Patient has SOB Deconditioned w/ increased weakness Limited ability to care for self High risk of falls Infection w/ risk of complications I certify that my clinical findings support that this patient is homebound because: Impaired cognitive ability/safety Unsteady gait/balance Unsafe to leave home unassisted Unable to use public transportation Kranthi Kidd MD Dec 28, 2016 14:38
--- NOTE | 2016-12-28 14:40 | HHI.PR ---
Subjective Remarks Patient remained short of breath. She remains oxygen dependent. She is not ambulating yet. Objective Vital Signs Date Time Temp Pulse Resp B/P Pulse Ox O2 Delivery O2 Flow Rate FiO2 12/28/16 12:00 98.3 79 18 131/64 97 12/28/16 12:00 Nasal Cannula 3.00 12/28/16 10:30 94 Nasal Cannula 2.00 12/28/16 08:10 Nasal Cannula 3.00 12/28/16 08:01 78 12/28/16 08:00 97.8 74 18 125/66 99 12/28/16 04:40 98.0 77 20 142/69 93 12/28/16 00:00 97.4 97 23 152/71 96 12/27/16 20:15 95 12/27/16 19:54 97.8 84 22 141/62 92 12/27/16 16:17 97.8 78 19 132/63 97 12/27/16 16:00 Nasal Cannula 3.00 I/O 12/27/16 12/27/16 12/27/16 12/28/16 12/28/16 12/28/16 07:00 15:00 23:00 07:00 15:00 23:00 Intake Total 834 ml 240 ml 0 ml Output Total 150 ml Balance 834 ml 90 ml 0 ml Intake Oral 480 ml 240 ml 0 ml IV Total 354 ml Output Urine Total 150 ml # Voids 4 7 # Bowel Movements 1 0 1 Result Diagram: 12/28/16 0834 12/28/16 0834 Objective Remarks GENERAL: NAD, A&Ox3 HEAD: Normocephalic. NECK: Supple, trachea midline. No lymphadenopathy. EYES: No scleral icterus. No injection or drainage. CARDIOVASCULAR: Regular rate and rhythm without murmurs, gallops, or rubs. RESPIRATORY: Breath sounds equal bilaterally. No accessory muscle use. GASTROINTESTINAL: Abdomen soft, non-tender, nondistended. MUSCULOSKELETAL: No cyanosis, or edema. SKIN: Warm and dry. NEURO: No focal neurological deficitis. A/P Problem List: (1) Septic shock ICD Code: A41.9 (2) Alzheimer's dementia ICD Code: F02.80 (3) Community acquired pneumonia ICD Code: J18.9 (4) Acute respiratory failure ICD Code: J96.00 (5) Pneumonia ICD Code: J18.9 Assessment and Plan Assessment and Plan 86-year-old female admitted secondary to community-acquired pneumonia with acute respiratory failure and hypoxia. Still unable to wean oxygen. PT ordered but patient is not very mobile yet. Further monitoring and patient necessary to attempt to wean oxygen prior to discharge and to make patient more mobile. Wean oxygen as tolerated. Continue physical therapy. New-onset shortness of breath/chest pain w coughing/PNA Community-acquired pneumonia Sepsis Sepsis resolved. Patient continues to be oxygen dependent Pulmonology following Continue azithromycin, cefepime, vancomycin Monitor CBC next Oral Tamara Clotrimazole troches Hypokalemia Follow potassium levels Replace as needed Hypothyroidism Continue Synthroid Dementia Continue Aricept, Namenda Hypertension Continue amlodipine Lisinopril held secondary to BRIANNE Acute kidney injury superimposed on chronic kidney disease stage III due to sepsis Improving Continue to monitor renal function DVT prophylaxis Lovenox CODE STATUS DO NOT RESUSCITATE Problem Qualifiers (1) Pneumonia: Qualified Code: J18.9 - Pneumonia of both lungs due to infectious organism, unspecified part of lung Kranthi Kidd MD Dec 28, 2016 14:40
--- NOTE | 2016-12-28 17:38 | HHI.PR ---
Subjective Remarks 86 YOWF with Bilat Pn, Dementia Up in chair breathing better no fever Alert awake,intermittentally confused Feels better Objective Vital Signs Vital Signs Date Time Temp Pulse Resp B/P Pulse Ox O2 Delivery O2 Flow Rate FiO2 12/28/16 17:25 95 Nasal Cannula 2.00 12/28/16 16:00 98.1 70 18 130/75 97 12/28/16 12:00 98.3 79 18 131/64 97 12/28/16 12:00 Nasal Cannula 3.00 12/28/16 10:30 94 Nasal Cannula 2.00 12/28/16 08:10 Nasal Cannula 3.00 12/28/16 08:01 78 12/28/16 08:00 97.8 74 18 125/66 99 12/28/16 04:40 98.0 77 20 142/69 93 12/28/16 00:00 97.4 97 23 152/71 96 12/27/16 20:15 95 12/27/16 19:54 97.8 84 22 141/62 92 I/O 12/27/16 12/27/16 12/27/16 12/28/16 12/28/16 12/28/16 07:00 15:00 23:00 07:00 15:00 23:00 Intake Total 834 ml 240 ml 0 ml 360 ml Output Total 150 ml 600 ml Balance 834 ml 90 ml 0 ml -240 ml Intake Oral 480 ml 240 ml 0 ml 360 ml IV Total 354 ml Output Urine Total 150 ml 600 ml # Voids 4 7 # Bowel Movements 1 0 1 0 Result Diagram: 12/28/16 0834 12/28/16 0834 Objective Remarks GENERAL: Elderly WF, NAD SKIN: Warm and dry. HEAD: Normocephalic. EYES: No scleral icterus. No injection or drainage. NECK: Supple, trachea midline. No JVD or lymphadenopathy. CARDIOVASCULAR: Regular rate and rhythm without murmurs, gallops, or rubs. RESPIRATORY: Breath sounds equal bilaterally. No accessory muscle use. GASTROINTESTINAL: Abdomen soft, non-tender, nondistended. MUSCULOSKELETAL: No cyanosis, or edema. BACK: Nontender without obvious deformity. No CVA tenderness. A/P Assessment and Plan Bilat Pneumonia Leucocytosis Pleural effusion, small Dementia PLAN: Cont Abx Check cultures monitor WBC Stable on RA Marko Roberson MD Dec 28, 2016 17:38
[2016-12-29 00:04] VITALS: BP 150/63; PULSE 71; RESP 20; TEMP 98.1; O2SAT 96
[2016-12-29] MEDS: LACTOBACILLUS ACIDOPHILUS TAB PO SCH ×3 (00:17→21:30)
[2016-12-29] MEDS: CLOTRIMAZOLE 10 MG TROCHE BUCCAL SCH ×6 (00:17→21:31)
[2016-12-29] MEDS: DOCUSATE SODIUM 50 MG/SENNA 8.6 MG TAB PO SCH ×3 (00:17→21:31)
[2016-12-29] MEDS: DONEPEZIL HCL 5 MG TAB PO SCH ×2 (00:17→21:31)
[2016-12-29] MEDS: MEMANTINE HCL 10 MG TAB PO SCH ×3 (00:17→21:31)
[2016-12-29] MEDS: DOCUSATE SODIUM 100 MG CAP PO SCH ×2 (00:18→21:30)
[2016-12-29] MEDS: SODIUM CHLORIDE 0.9% FLUSH 10 ML FLUSH IV FLUSH SCH ×3 (00:18→21:31)
[2016-12-29 04:00] VITALS: BP 159/70; PULSE 83; RESP 20; TEMP 97.6; O2SAT 97
[2016-12-29] MEDS: LEVOTHYROXINE SODIUM 50 MCG TAB PO SCH (04:37)
[2016-12-29] MEDS: AZITHROMYCIN INJ 500 MG in SODIUM CHLOR 0.9% 250 ML INJ 250 ML IV SCH (04:38)
[2016-12-29 08:00] VITALS: BP 136/88; PULSE 77; PULSE 84; RESP 20; TEMP 97.8; O2SAT 97
[2016-12-29] MEDS: amLODIPine BESYLATE 5 MG TAB PO SCH (08:07)
[2016-12-29] MEDS: FERROUS SULFATE 325 MG (65 MG ELEMENTAL IRON) TAB PO SCH (08:07)
[2016-12-29] MEDS: predniSONE 20 MG TAB PO SCH (08:07)
[2016-12-29] MEDS: ASPIRIN 81 MG CHEW TAB CHEW SCH (08:08)
[2016-12-29] MEDS: ENOXAPARIN SODIUM 30 MG/0.3 ML SYRINGE SQ SCH (11:15)
[2016-12-29] MEDS: CEFEPIME INJ 1,000 MG in SODIUM CHLORIDE 0.9% INJ 100 ML IV SCH (11:16)
[2016-12-29 12:00] VITALS: BP 125/75; PULSE 77; RESP 20; TEMP 98.1; O2SAT 97
[2016-12-29] MEDS ORDERED: ALUMINUM/MAGNESIUM/SIMETH 30 ML CUP PO ONE (13:00)
--- NOTE | 2016-12-29 13:29 | HHI.PR ---
Subjective Remarks Complaining of epigastric chest pain today. No tenderness reported. No fevers. Objective Vital Signs Date Time Temp Pulse Resp B/P Pulse Ox O2 Delivery O2 Flow Rate FiO2 12/29/16 08:00 97.8 77 20 136/88 97 12/29/16 04:00 97.6 83 20 159/70 97 12/29/16 00:18 Nasal Cannula 2.00 12/29/16 00:04 98.1 71 20 150/63 96 12/28/16 20:00 97.8 85 20 146/65 93 12/28/16 17:25 95 Nasal Cannula 2.00 12/28/16 16:00 98.1 70 18 130/75 97 I/O 12/28/16 12/28/16 12/28/16 12/29/16 12/29/16 12/29/16 07:00 15:00 23:00 07:00 15:00 23:00 Intake Total 0 ml 360 ml 240 ml 240 ml Output Total 600 ml 1 ml Balance 0 ml -240 ml 240 ml 239 ml Intake Oral 0 ml 360 ml 240 ml 240 ml Output Urine Total 600 ml 1 ml # Voids 7 1 3 # Bowel Movements 1 0 1 1 Result Diagram: 12/28/16 0834 12/29/16 0828 Objective Remarks GENERAL: NAD, A&Ox3 HEAD: Normocephalic. NECK: Supple, trachea midline. No lymphadenopathy. EYES: No scleral icterus. No injection or drainage. CARDIOVASCULAR: Regular rate and rhythm without murmurs, gallops, or rubs. RESPIRATORY: Breath sounds equal bilaterally. No accessory muscle use. GASTROINTESTINAL: Abdomen soft, non-tender, nondistended. MUSCULOSKELETAL: No cyanosis, or edema. SKIN: Warm and dry. NEURO: No focal neurological deficitis. A/P Problem List: (1) Septic shock ICD Code: A41.9 (2) Alzheimer's dementia ICD Code: F02.80 (3) Community acquired pneumonia ICD Code: J18.9 (4) Acute respiratory failure ICD Code: J96.00 (5) Pneumonia ICD Code: J18.9 Assessment and Plan Assessment and Plan 86-year-old female admitted secondary to community-acquired pneumonia with acute respiratory failure and hypoxia. Still unable to wean oxygen. Report of chest pain today. Cardiac workup initiated and treatments for gastric and pulmonary etiologies are present. Follow telemetry. Monitor cardiac enzymes. Chest pain Etiology may be gastric versus pneumonia versus cardiac Continue treatment of pneumonia As needed Mylanta for potential dyspepsia For now EKG, follow on telemetry, and serial cardiac enzymes New-onset shortness of breath/chest pain w coughing/PNA Community-acquired pneumonia Sepsis Sepsis resolved. Patient continues to be oxygen dependent Pulmonology following Continue azithromycin, cefepime, vancomycin Monitor CBC next Oral Tamara Clotrimazole troches Hypokalemia Follow potassium levels Replace as needed Hypothyroidism Continue Synthroid Dementia Continue Aricept, Namenda Hypertension Continue amlodipine Lisinopril held secondary to BRIANNE Acute kidney injury superimposed on chronic kidney disease stage III due to sepsis Improving Continue to monitor renal function DVT prophylaxis Lovenox CODE STATUS DO NOT RESUSCITATE Problem Qualifiers (1) Pneumonia: Qualified Code: J18.9 - Pneumonia of both lungs due to infectious organism, unspecified part of lung Kranthi Kidd MD Dec 29, 2016 13:29
[2016-12-29] MEDS: VANCOMYCIN 1,000 MG/NS 250 ML IV SCH ×2 (13:56)
[2016-12-29 16:00] VITALS: BP 145/67; PULSE 69; RESP 18; TEMP 97.6; O2SAT 97
[2016-12-29 20:00] VITALS: BP 128/63; PULSE 69; PULSE 73; RESP 18; TEMP 97.5; O2SAT 95
[2016-12-29] MEDS: TEMAZEPAM 7.5 MG CAP PO PRN (21:31)
[2016-12-30] VITALS (9 sets, daily range): BP systolic 117–153; BP diastolic 60–104; PULSE 67–86; RESP 18–20; TEMP 97.7–99; O2SAT 92–96
[2016-12-30 00:33] LABS: BICARBONATE 25.2 MEQ/L (21.0-32.0); POTASSIUM 3.6 MEQ/L (3.5-5.1)
[2016-12-30] MEDS: CLOTRIMAZOLE 10 MG TROCHE BUCCAL SCH ×5 (05:34→21:25)
[2016-12-30] MEDS: LEVOTHYROXINE SODIUM 50 MCG TAB PO SCH (05:34)
[2016-12-30] MEDS: AZITHROMYCIN INJ 500 MG in SODIUM CHLOR 0.9% 250 ML INJ 250 ML IV SCH (05:35)
[2016-12-30 06:14] LABS: HEMATOCRIT 25.9 % (35.0-46.0); MEAN CELL VOLUME 89.3 FL (80.0-100.0); MEAN CORPUSCULAR HGB CONC 33.5 % (32.0-36.0); PLATELET COUNT 247 TH/MM3 (150-450); RED CELL DISTRIBUTION WIDTH 13.3 % (11.6-17.2); REVIEW FLAG FINAL; WHITE BLOOD COUNT 12.7 TH/MM3 (4.0-11.0)
[2016-12-30] MEDS: DOCUSATE SODIUM 50 MG/SENNA 8.6 MG TAB PO SCH ×2 (07:45→21:00)
[2016-12-30] MEDS: MEMANTINE HCL 10 MG TAB PO SCH ×2 (07:45→21:25)
[2016-12-30] MEDS: predniSONE 20 MG TAB PO SCH (07:47)
[2016-12-30] MEDS: amLODIPine BESYLATE 5 MG TAB PO SCH (07:47)
[2016-12-30] MEDS: FERROUS SULFATE 325 MG (65 MG ELEMENTAL IRON) TAB PO SCH (07:48)
[2016-12-30] MEDS: LACTOBACILLUS ACIDOPHILUS TAB PO SCH ×2 (07:48→21:25)
[2016-12-30] MEDS: ASPIRIN 81 MG CHEW TAB CHEW SCH (07:48)
--- NOTE | 2016-12-30 10:51 | HHI.PR ---
Subjective Remarks Plan to continue antibiotics for now as advised by pulmonology. She still has some discomfort in the diaphragm area, likely related to pneumonia. Cardiac enzymes were only slightly elevated (improved from prior evaluation on 12/23/16) , which would be consistent with the degree of inflammation she has from pneumonia. Objective Vital Signs Date Time Temp Pulse Resp B/P Pulse Ox O2 Delivery O2 Flow Rate FiO2 12/30/16 08:00 98.3 79 20 135/104 95 12/30/16 05:00 97.8 71 20 153/70 95 12/30/16 00:00 97.7 75 20 145/68 96 12/29/16 20:00 69 12/29/16 20:00 Nasal Cannula 2.00 12/29/16 20:00 97.5 73 18 128/63 95 12/29/16 20:00 69 12/29/16 16:00 97.6 69 18 145/67 97 12/29/16 12:00 97 Nasal Cannula 2.00 12/29/16 12:00 98.1 77 20 125/75 97 I/O 12/29/16 12/29/16 12/29/16 12/30/16 12/30/16 12/30/16 07:00 15:00 23:00 07:00 15:00 23:00 Intake Total 240 ml 700 ml 250 ml Output Total 1 ml 200 ml Balance 239 ml 500 ml 250 ml Intake Oral 240 ml 700 ml IV Total 250 ml Output Urine Total 1 ml 200 ml # Voids 3 4 6 # Bowel Movements 1 0 2 1 Result Diagram: 12/30/16 0545 12/29/16 2353 Objective Remarks GENERAL: NAD, A&Ox3 HEAD: Normocephalic. NECK: Supple, trachea midline. No lymphadenopathy. EYES: No scleral icterus. No injection or drainage. CARDIOVASCULAR: Regular rate and rhythm without murmurs, gallops, or rubs. RESPIRATORY: Breath sounds equal bilaterally. No accessory muscle use. GASTROINTESTINAL: Abdomen soft, non-tender, nondistended. MUSCULOSKELETAL: No cyanosis, or edema. SKIN: Warm and dry. NEURO: No focal neurological deficitis. A/P Problem List: (1) Septic shock ICD Code: A41.9 (2) Alzheimer's dementia ICD Code: F02.80 (3) Community acquired pneumonia ICD Code: J18.9 (4) Acute respiratory failure ICD Code: J96.00 (5) Pneumonia ICD Code: J18.9 Assessment and Plan Assessment and Plan 86-year-old female admitted secondary to community-acquired pneumonia with acute respiratory failure and hypoxia. Patient is doing better with room air. Continue IV antibiotics for now, regarding treatment of pneumonia. Chest pain Etiology may be gastric versus pneumonia versus cardiac Continue treatment of pneumonia As needed Mylanta for potential dyspepsia For now EKG, follow on telemetry, and serial cardiac enzymes New-onset shortness of breath/chest pain w coughing/PNA Community-acquired pneumonia Sepsis Sepsis resolved. Patient continues to be oxygen dependent Pulmonology following Continue azithromycin, cefepime, vancomycin Monitor CBC next Oral Tamara Clotrimazole troches Hypokalemia Follow potassium levels Replace as needed Hypothyroidism Continue Synthroid Dementia Continue Aricept, Namenda Hypertension Continue amlodipine Lisinopril held secondary to BRIANNE Acute kidney injury superimposed on chronic kidney disease stage III due to sepsis Improving Continue to monitor renal function DVT prophylaxis Lovenox CODE STATUS DO NOT RESUSCITATE Problem Qualifiers (1) Pneumonia: Qualified Code: J18.9 - Pneumonia of both lungs due to infectious organism, unspecified part of lung Kranthi Kidd MD Dec 30, 2016 10:51
[2016-12-30] MEDS: SODIUM CHLORIDE 0.9% FLUSH 10 ML FLUSH IV FLUSH SCH ×2 (11:01→21:27)
[2016-12-30] MEDS: ENOXAPARIN SODIUM 30 MG/0.3 ML SYRINGE SQ SCH (11:01)
[2016-12-30] MEDS: CEFEPIME INJ 1,000 MG in SODIUM CHLORIDE 0.9% INJ 100 ML IV SCH (11:01)
[2016-12-30] MEDS: VANCOMYCIN 1,000 MG/NS 250 ML IV SCH ×2 (12:42)
[2016-12-30] MEDS ORDERED: NAPROXEN 250 MG TAB PO ONE (14:00)
[2016-12-30] MEDS ORDERED: ALUMINUM/MAGNESIUM/SIMETH 30 ML CUP PO PRN (14:00)
--- NOTE | 2016-12-30 17:28 | EKG ---
Date Performed: 12/29/2016 Time Performed: 13:02:36 PTAGE: 86 years EKG: Sinus rhythm WITH SINUS ARRHYTHMIA NONSPECIFIC T-WAVE ABNORMALITY BORDERLINE ECG Since PREVIOUS TRACING , no significant change noted PREVIOUS TRACIN12/23/2016 13.33 DOCTOR: Aneudy Batista Interpretating Date/Time 12/30/2016 17:28:03
[2016-12-30] MEDS: TEMAZEPAM 7.5 MG CAP PO PRN (21:25)
[2016-12-30] MEDS: DONEPEZIL HCL 5 MG TAB PO SCH (21:25)
[2016-12-30] MEDS: DOCUSATE SODIUM 100 MG CAP PO SCH (21:26)
[2016-12-31] VITALS (7 sets, daily range): BP systolic 108–149; BP diastolic 62–84; PULSE 61–66; RESP 16–20; TEMP 97.4–98.4; O2SAT 95–96
[2016-12-31] MEDS: CLOTRIMAZOLE 10 MG TROCHE BUCCAL SCH ×4 (05:49→17:53)
[2016-12-31] MEDS: LEVOTHYROXINE SODIUM 50 MCG TAB PO SCH (05:49)
[2016-12-31] MEDS: AZITHROMYCIN INJ 500 MG in SODIUM CHLOR 0.9% 250 ML INJ 250 ML IV SCH (05:49)
[2016-12-31] MEDS ORDERED: predniSONE 5 MG TAB PO SCH (09:00)
[2016-12-31] MEDS: amLODIPine BESYLATE 5 MG TAB PO SCH (09:54)
[2016-12-31] MEDS: DOCUSATE SODIUM 50 MG/SENNA 8.6 MG TAB PO SCH (09:54)
[2016-12-31] MEDS: ENOXAPARIN SODIUM 30 MG/0.3 ML SYRINGE SQ SCH (09:54)
[2016-12-31] MEDS: ASPIRIN 81 MG CHEW TAB CHEW SCH (09:55)
[2016-12-31] MEDS: LACTOBACILLUS ACIDOPHILUS TAB PO SCH (09:55)
[2016-12-31] MEDS: MEMANTINE HCL 10 MG TAB PO SCH (09:55)
[2016-12-31] MEDS: FERROUS SULFATE 325 MG (65 MG ELEMENTAL IRON) TAB PO SCH (09:55)
[2016-12-31] MEDS: SODIUM CHLORIDE 0.9% FLUSH 10 ML FLUSH IV FLUSH SCH (09:56)
[2016-12-31] MEDS: ACETAMINOPHEN 325 MG TAB PO PRN (11:02)
[2016-12-31] MEDS: CEFEPIME INJ 1,000 MG in SODIUM CHLORIDE 0.9% INJ 100 ML IV SCH (11:02)
[2016-12-31] MEDS: VANCOMYCIN 1,000 MG/NS 250 ML IV SCH ×2 (11:04)
[2016-12-31] MEDS ORDERED: PRED5TAB PO (15:04)
[2016-12-31] MEDS ORDERED: LACT PO (15:04)
--- NOTE | 2016-12-31 15:08 | HHI.DS ---
Discharge Summary Admission Date Dec 20, 2016 at 08:45 Discharge Date: Dec 31, 2016 Admitting Diagnosis pneumonia (1) Septic shock ICD Code: A41.9 (2) Acute respiratory failure ICD Code: J96.00 Diagnosis: Principal (3) Community acquired pneumonia ICD Code: J18.9 Diagnosis: Principal (4) Alzheimer's dementia ICD Code: F02.80 Diagnosis: Secondary Procedures None Brief History - From Admission A 86-year-old white female with a history of dementia hypothyroidism was sent via [facility] from a local assisted living facility or movement in the [facility] due to complaints of increased shortness of breath and past 3 days worsened with physical exertion of walking with her walker. She is confused and importance historian. She thinks at this moment she is still back in the assisted living facility. She denies having associated chills or fever. She reports a nonproductive cough with her as shortness of breath. She denies any associated chest pain, nausea, vomiting, orthopnea, nor any lower extremity swelling with the symptoms. She denies any past medical history and only tells me that she's had her hip fixed in the past due to a fall. She cannot tell me what type of medication she takes. She tells me the people who take care of her at the assisted living just gives me these medications. She denied any allergies although from the assisted living facility forms is documented that she is allergic to codeine morphine and Percocet. At this time or in the process of contacting the assisted living facility to obtain a full completed medication list. She states that she does not use any oxygen at home. While she is in the emergency room, she desaturates in the 80s and placed on 3 L CBC/BMP: 12/30/16 0545 12/31/16 0800 Significant Findings Laboratory Tests Test 12/29/16 12/29/16 12/29/16 12/30/16 08:28 16:07 23:53 05:45 Estimat Glomerular Filtration 53 ML/MIN (>89) 58 ML/MIN (>89) Rate Troponin I 0.07 NG/ML 0.07 NG/ML 0.08 NG/ML (0.02-0.05) (0.02-0.05) (0.02-0.05) Blood Urea Nitrogen 22 MG/DL (7-18) Calcium Level 7.9 MG/DL (8.5-10.1) White Blood Count 12.7 TH/MM3 (4.0-11.0) Red Blood Count 2.90 MIL/MM3 (4.00-5.30) Hemoglobin 8.7 GM/DL (11.6-15.3) Hematocrit 25.9 % (35.0-46.0) Test 12/31/16 08:00 Estimat Glomerular Filtration 53 ML/MIN (>89) Rate PE at Discharge GENERAL: NAD, A&Ox1 HEAD: Normocephalic. NECK: Supple, trachea midline. No lymphadenopathy. EYES: No scleral icterus. No injection or drainage. CARDIOVASCULAR: Regular rate and rhythm without murmurs, gallops, or rubs. RESPIRATORY: Breath sounds equal bilaterally. No accessory muscle use. GASTROINTESTINAL: Abdomen soft, non-tender, nondistended. MUSCULOSKELETAL: No cyanosis, or edema. SKIN: Warm and dry. NEURO: No focal neurological deficitis. Hospital Course Mrs. Santillan is an 86-year-old female. She was admitted secondary to pneumonia with acute respiratory failure and septic shock. Antibiotics were provided and she had slow recovery. She has not yet to baseline but she is able to cooperate with physical therapy and antibiotic treatments have been completed and she is no longer requiring oxygen. He has dementia at baseline and lives in an [facility] with her . She should do well at [facility] with orientation of her with physical therapy to continue there. Medically stable for discharge to [facility] with home health care and physical therapy today. Pt Condition on Discharge: Good Discharge Disposition: [facility] with [facility] Discharge Time: > 30 minutes Discharge Instructions DIET: Follow Instructions for: As Tolerated, No Restrictions Speech Therapy-Diet Recommends: Soft, [place] Thickened Liquids Activities you can perform: Regular-No Restrictions Follow up Referrals: PCP Follow-up - 2 Weeks New Medications: Lactobacillus Acidophilus (Acidophilus/l-Sporogenes) 1 Tab Tab 1 TAB PO Q12HR Probiotic #30 TAB Prednisone (Prednisone) 5 Mg Tab 5 MG PO DAILY Inflammation #5 TAB Continued Medications: Aspirin (Aspirin) 81 Mg Chew 81 MG CHEW DAILY Ref 0 TAB Calcium Carbonate (Antacid) (Calcium Carbonate (Antacid)) 500 Mg Chew 500 MG CHEW PRN HEARTBURN Ref 0 TAB Cholecalciferol (Vitamin D3) 1,000 Unit Chew 1000 UNITS CHEW DAILY Nutritional Supplement #1 Ref 0 BOTTLE Docusate Sodium (Docusate Sodium) 100 Mg Cap 200 MG PO HS Prevent Constipation #60 Ref 0 CAP Donepezil HCl (Aricept) 5 Mg Tablet 5 MG PO HS Ferrous Sulfate (Ferrous Sulfate) 325 Mg (65 Mg Iron) Tablet 325 MG PO DAILY Nutritional Supplement #30 Ref 0 TAB Levothyroxine (Levothyroxine) 50 Mcg Tab 50 MCG PO DAILY Thyroid #30 Ref 0 TAB Memantine Er (Namenda Xr) 28 Mg Caper 28 MG PO DAILY Alzheimer Disease #30 Ref 0 CAP Mirtazapine (Mirtazapine) 30 Mg Tab 30 MG PO HS Depression Control #30 Ref 0 TAB Multiple Vitamin (Daily Sandra) 1 Tab Tab Temazepam (Temazepam) 15 Mg Cap 15 MG PO HS PRN INSOMNIA #30 Ref 0 CAP Discontinued Medications: Amlodipine (Amlodipine) 5 Mg Tab 5 MG PO DAILY Blood Pressure Management #30 Ref 0 TAB Lisinopril (Lisinopril) 10 Mg Tab 10 MG PO DAILY #30 Ref 0 TAB Kranthi Kidd MD Dec 31, 2016 15:08
--- NOTE | 2016-12-31 17:10 | HHI.PR ---
Subjective Remarks 86 YOWF with Bilat Pn, Dementia Up in chair breathing better no fever Feels better Objective Vital Signs Vital Signs Date Time Temp Pulse Resp B/P Pulse Ox O2 Delivery O2 Flow Rate FiO2 12/31/16 12:04 97.4 61 18 136/63 96 12/31/16 08:03 97.7 66 16 149/64 95 12/31/16 08:00 62 12/31/16 08:00 62 12/31/16 08:00 95 12/31/16 07:43 96 21 12/31/16 04:00 98.4 63 20 116/84 96 12/31/16 00:00 97.6 63 16 108/62 96 12/30/16 21:00 67 12/30/16 21:00 Nasal Cannula 2.00 12/30/16 20:00 98.1 78 18 117/60 92 12/30/16 18:25 95 21 I/O 12/30/16 12/30/16 12/30/16 12/31/16 12/31/16 12/31/16 07:00 15:00 23:00 07:00 15:00 23:00 Intake Total 250 ml 480 ml 240 ml 120 ml 350 ml Output Total 500 ml 4 ml 400 ml Balance 250 ml -20 ml 236 ml -280 ml 350 ml Intake Oral 480 ml 240 ml 120 ml IV Total 250 ml 350 ml Output Urine Total 500 ml 4 ml 400 ml # Voids 6 4 # Bowel Movements 1 1 2 2 Result Diagram: 12/30/16 0545 12/31/16 0800 Objective Remarks GENERAL: Elderly WF, NAD SKIN: Warm and dry. HEAD: Normocephalic. EYES: No scleral icterus. No injection or drainage. NECK: Supple, trachea midline. No JVD or lymphadenopathy. CARDIOVASCULAR: Regular rate and rhythm without murmurs, gallops, or rubs. RESPIRATORY: Breath sounds equal bilaterally. No accessory muscle use. GASTROINTESTINAL: Abdomen soft, non-tender, nondistended. MUSCULOSKELETAL: No cyanosis, or edema. BACK: Nontender without obvious deformity. No CVA tenderness. A/P Assessment and Plan Bilat Pneumonia Leucocytosis Pleural effusion, small Dementia PLAN: Cont Abx monitor WBC Stable on RA DC plans underway for DETENTION. Marko Roberson MD Dec 31, 2016 17:10
[2017-01-01] MEDS ORDERED: PHARMACY ORDERED LAB ONE (11:45)
== END 2016-12-31 19:21 | DRG 871 ==
LOC: NEPC 03:32 → NEDA 06:09 → INTOOBSV 06:09 → OBSVTOIN 08:45 → N03A 17:28 → N04A 12-21 14:47 → N04B 12-22 20:10
PROVIDERS: ADMIT Family Medicine; ATTEND Hospitalist
DX: A41.9 Sepsis, unspecified organism (principal); J18.9 Pneumonia, unspecified organism; J96.01 Acute respiratory failure with hypoxia; R65.21 Severe sepsis with septic shock; N17.9 Acute kidney failure, unspecified; J90 Pleural effusion, not elsewhere classified; N18.3 Chronic kidney disease, stage 3 (moderate); G30.9 Alzheimer's disease, unspecified; B37.0 Candidal stomatitis; F02.80 Dementia in other diseases classified elsewhere, unspecified severity, without behavioral disturbance, psychotic disturbance, mood disturbance, and anxiety; E03.9 Hypothyroidism, unspecified; I12.9 Hypertensive chronic kidney disease with stage 1 through stage 4 chronic kidney disease, or unspecified chronic kidney disease; R07.9 Chest pain, unspecified; E87.6 Hypokalemia; K59.00 Constipation, unspecified; Z88.5 Allergy status to narcotic agent
CPT/HCPCS: 36600; 71010; 71250; 71275; 76937; 80048; 80053; 80069; 80076; 80202; 81001; 82550; 82552; 82565; 82805; 83605; 83735; 83880; 84484; 85007; 85025; 85027; 85379; 85610; 85730; 87040; 87086; 87641; 93005; 94150; 94640; 94664; 94667; 94668; 96374; J0456; J0692; J0696; J1170; J1650; J2405; J2920; J3260; J3370; J3480; J7030; J7050; J7512; J7613; Q9967